=== PATIENT | female | born 1945 | race Caucasian/White ===

== ENCOUNTER 2022-03-27 12:01 | Outpatient (REF) | payer MEDICARE, OTHER, SELFPAY | END 2022-03-27 12:02 | disposition home or self-care (01) | LOC: HO.MDS 12:01 | PROVIDERS: PCP Internal Medicine Rheumatology; Visit Provider Internal Medicine Cardiovascular Disease | DX: M06.00 Rheumatoid arthritis without rheumatoid factor, unspecified site (principal) | CPT/HCPCS: J0129 ==

== ENCOUNTER 2022-03-27 13:44 | Outpatient (REF) | payer MEDICARE, OTHER, SELFPAY ==
[2022-03-27 14:54] LABS: COVID-19 Test Negative (Negative)
== END 2022-03-27 13:45 | disposition home or self-care (01) ==
LOC: HO.LAB 13:44
PROVIDERS: Visit Provider Internal Medicine
DX: M06.00 Rheumatoid arthritis without rheumatoid factor, unspecified site (principal); Z20.822 Contact with and (suspected) exposure to COVID-19
CPT/HCPCS: 87635; 96365; C9803; J0129

== ENCOUNTER 2022-04-05 14:52 | Inpatient (IN) | payer MEDICARE, OTHER, SELFPAY ==
--- NOTE | ~2022-04-05 | XR_ITS ---
EXAMINATION: XR PELVIS CLINICAL INFORMATION: Fall. COMPARISON: None TECHNIQUE: AP view of the pelvis. FINDINGS: No acute fractures or malalignment. Mild degenerative osteoarthritis of both hips. Residual IV contrast in the collecting systems and bladder. No unexpected radiopaque foreign bodies. XR/XR pelvis 1-2V IMPRESSION: No acute fractures or malalignment.
--- NOTE | ~2022-04-05 | CT_ITS ---
EXAMINATION: CT HEAD WITHOUT CONTRAST CLINICAL INFORMATION: Headache COMPARISON: None TECHNIQUE: Contiguous axial imaging was performed from the skull base to vertex without intravenous administration of contrast. This CT examination was performed using dose optimization techniques as appropriate, variously including the following: *Automated exposure control *Adjustment of mA and/or kV according to patient size (this includes techniques or standardized protocols for targeted exams where dose is matched to indication/reason for exam; i.e. extremities or head) *Use of iterative reconstruction technique DLP: 605 mGy-cm FINDINGS: There is no evidence of acute intracranial hemorrhage or territorial infarction. No abnormal mass effect or midline shift is seen. Bass to white matter differentiation is well preserved. No extra-axial fluid collections are identified. There is mild global volume loss with proportionate dilatation of the ventricles and cortical sulci. No definite significant abnormal parenchymal attenuation is noted. Patient is status post bilateral lens extraction. The osseous structures and soft tissues are normal. The mastoid air cells and visualized portions of the paranasal sinuses are well aerated. CT/CT head/brain wo con IMPRESSION: No acute intracranial pathology.
--- NOTE | ~2022-04-05 | US_ITS ---
EXAMINATION: US VENOUS ULTRASOUND WITH DOPPLER LOWER EXTREMITY, BILATERAL CLINICAL INFORMATION: Positive d-dimer. COMPARISON: None. TECHNIQUE: Ultrasound of the deep veins is performed from the hip to the calf with compression sonography and color and pulse Doppler assessment. Spectral analysis with color-flow imaging is performed. FINDINGS: RIGHT: There is normal venous compression and respiratory variation and augmented flow. The visualized common femoral vein, superficial femoral vein, profunda femoral vein, popliteal vein, and the trifurcation region shows no evidence of deep venous thrombosis. There is no significant popliteal fossa cyst. LEFT: There is normal venous compression and respiratory variation and augmented flow. The visualized common femoral vein, superficial femoral vein, profunda femoral vein, popliteal vein, and the trifurcation region shows no evidence of deep venous thrombosis. There is no significant popliteal fossa cyst. If the patient's symptoms persist, followup ultrasound in 5 days 7 days might be of value to exclude proximal propagation from a non-visualized calf vein. US/US venous duplex LE BI IMPRESSION: No DVT demonstrated in the bilateral lower extremities.
--- NOTE | ~2022-04-05 | CT_ITS ---
EXAMINATION: CT ANGIOGRAM OF THE CHEST WITH AND WITHOUT CONTRAST (CT PULMONARY ANGIOGRAM FOR PE) CLINICAL INFORMATION: Reason for Exam syncope,sob with minimal exertion, recent travel hx COMPARISON: None TECHNIQUE: Prior to contrast administration, noncontrast localization images were obtained. Subsequently, multidetector volumetric imaging was performed from the thoracic inlet to below the diaphragms following the administration of 80 mL Omnipaque 350 intravenous contrast. No contrast reaction reported Sagittal, coronal, and MIP oblique sagittal reformatted images were obtained on the CT workstation, uploaded to PACS, and reviewed. This CT examination was performed using dose optimization techniques as appropriate, variously including the following: *Automated exposure control *Adjustment of mA and/or kV according to patient size (this includes techniques or standardized protocols for targeted exams where dose is matched to indication/reason for exam; i.e. extremities or head) *Use of iterative reconstruction technique Total exam dose-length product 229 mGy-cm FINDINGS: QUALITY OF STUDY/CONTRAST BOLUS: Satisfactory. PULMONARY ARTERIES: There are small thrombus in the right lower lobe posterior basal segment branch consistent PE. This is best visualized on axial image 32/5. No additional filling defects seen. THORACIC AORTA: There is no evidence of aneurysm or dissection suspected. LUNG: The lungs are well-expanded with bibasilar atelectasis. No consolidation, mass or nodules seen. PLEURA: No pleural effusion or pneumothorax. MEDIASTINUM: The heart size and the great vessels are normal caliber. The right ventricle isn't slightly larger compared to the left ventricle but no evidence of septal bowing or right heart strain. No abnormal size based lymph nodes or mass seen. No pericardial effusion. CHEST WALL/AXILLA: No axillary or internal mammary lymphadenopathy. OSSEOUS STRUCTURES: No acute or suspicious osseous abnormality. UPPER ABDOMEN: Unremarkable. No reflux of contrast into the hepatic veins to suggest elevated right heart pressures. CT/CT angio chest PE protocol IMPRESSION: Right lower lobe thrombus/PE. No additional thrombi seen. Dependent bibasilar atelectasis. Results were called to Dr. Sabillon by phone with ER at 4:58 PM VTE: positive
--- NOTE | ~2022-04-05 | NM_ITS ---
EXAMINATION: NM LUNG IMAGE PERFUSION CLINICAL INFORMATION: SOB, intermittent pulmonary emboli is noted. COMPARISON: None TECHNIQUE: Following intravenous administration of 4.0 mCi of 90 9M technetium MAA, imaging of both lungs were obtained in multiple projections. Ventilation study was not performed. FINDINGS: There is normal perfusion seen to all segments of both lungs without focal segmental or subsegmental defect. Ventilation study was not performed. NM/NM pul perfusion IMPRESSION: Normal perfusion exam. No suspicion for PE.
[2022-04-05 15:06] VITALS: BP 101/55; PULSE 73; RESP 18; TEMP 36.8; O2SAT 98; BMI 22.7
--- NOTE | 2022-04-05 15:10 | ECG_ITS ---
Test Reason : DYSPNEA Blood Pressure : / mmHG Vent. Rate : 070 BPM Atrial Rate : 070 BPM P-R Int : 146 ms QRS Dur : 070 ms QT Int : 408 ms P-R-T Axes : 066 032 063 degrees QTc Int : 440 ms Normal sinus rhythm Cannot rule out Anterior infarct , age undetermined Abnormal ECG No previous ECGs available Referred By: Farhad Webb Electronically Signed By:Deon Tsang
[2022-04-05 15:24] LABS: Glucose, Whole Blood 97 mg/dL (60-115)
--- NOTE | 2022-04-05 15:43 | ED.NEUROSD ---
HPI - Neuro Symptoms/Deficit General Chief Complaint: Neuro Symptoms/Deficit Stated Complaint: DIFFICULTY BREATHING, CHEST PAIN Time Seen by Provider: 04/05/22 15:09 Source: patient and family (Spouse) Mode of arrival: ambulatory Limitations: no limitations History of Present Illness HPI Narrative: 76-year-old female came in with her for evaluation shortness of breath and syncopal episode today. Patient with history of inflammatory arthritis receiving methotrexate and other immunosuppressant infusion, patient recently had IV infusion of Orencia. For 2 days patient been having shortness of breath at rest, worsening with any minimal exertion, patient witnessed to pass out twice by her , patient had 1 time nonbloody watery diarrhea. Patient was seen and evaluated at [facility] for same symptoms had a CT chest without IV contrast showed no parenchymal abnormalities. A concern of PE since patient recently traveled from [place]. Decline chest pain, decline bleeding, no fever, no chills. Related Data Allergies Allergy/AdvReac Type Severity Reaction Status Date / Time No Known Allergies Allergy Verified 04/05/22 15:06 Review of Systems Review of Systems: All other systems are reviewed and are negative Constitutional: Reports as per HPI and Reports no additional constitutional complaints Eyes: Reports as per HPI and Reports no additional eye complaints Reports system reviewed and no additional complaints, except as documented Cardiovascular: Reports as per HPI and Reports no additional cardiovascular complaints Respiratory: Reports as per HPI and Reports no additional respiratory complaints Gastrointestinal: Reports as per HPI and Reports no additional gastrointestinal complaints Genitourinary: Reports no additional female genitourinary complaints Musculoskeletal: Reports no additional musculoskeletal complaints Skin/Breast: Reports system reviewed and no additional complaints, except as docu Psychiatric: Reports no additional psychiatric complaints Endocrine: Reports no additional endocrine complaints Hematologic/Lymphatic: Reports no additional hematologic/lymphatic complaints Allergic/Immunologic: Reports no additional allergic/immunologic complaints Reports system reviewed and no additional complaints, except as documented and Reports Abnormal speech present [facility] Past Medical History Attestation statement: The following information was validated with the patient. Social History Social History Advance Directives: No Advance Directives Information Provided: No Physical Exam Vital Signs: Vital Signs: Last Vital Signs Temp 98.3 F 04/05/22 15:06 Pulse 73 04/05/22 15:06 Resp 18 04/05/22 15:06 BP 101/55 L 04/05/22 15:06 Pulse Ox 98 04/05/22 15:06 BMI result Body Mass Index 22.7 Vital signs have been reviewed as appeared to be correct. Blood pressure normal. Heart rate normal. Respiration rate normal. Temperature normal. Oxygen saturation normal. Appearance: Alert. Oriented X3. No acute distress. Head: Normal external exam. Normocephalic. Atraumatic. No Newton signs noted. No raccoon eyes noted Eyes: PERRLA. EOMI. Conjunctiva and sclera normal. Eyelids normal. ENT: TM's Normal. Pharynx normal. Uvula midline. Moist mucous membranes. No trismus noted. No drooling noted. No muffled voice noted. Neck: Normal inspection. Neck supple. FROM. No adenopathy. Thyroid Normal. No meningeal signs. No neck mass noted. CVS: Normal heart rate and rhythm. Heart sound normal. No murmurs noted. Pulses normal throughout. Respiratory: No respiratory distress. Painless inspiration. Breath sounds normal. No wheezes/rales/rhonchi noted. Chest nontender. No accessory muscle usage noted or decreased air movement noted. Abdomen: Soft and nontender. Bowel sounds normal in all 4 quadrants. No distention noted. No organomegaly noted. No visible injury noted. Back: No CVA tenderness. Full range of motion noted. Skin: Skin warm and dry. Normal skin color. Normal skin turgor. No rashes/lesions/lacerations noted. Extremities: No lower extremity edema. Extremities exhibit normal range of motion. Extremities nontender. Neuro: Oriented X 3. Cranial nerve exam: II-XII are grossly intact No motor deficit. No sensory deficit. Reflexes normal. Course Course Course Narrative: Assessment and plan. 76-year-old female came in for evaluation of shortness of breath after had orenica IV infusion last week. Labs/CT of the abdomen and pelvis still pending. Case signed out to Dr. Sabillon for re-evaluation and dispo accordingly MDM - Neuro Symptoms/Deficit Lab Data Labs: Lab Results 04/05/22 Range/Units 15:14 POC Glucose 97 (60-115) mg/dL Discharge Plan Discharge Clinical Impression: Dyspnea Patient Disposition: Still a Patient
[2022-04-05 15:58] LABS: MANUAL DIFF FLAG NO
[2022-04-05 15:59] LABS: Basophils Percent Auto 0.5 % (0-2); Eosinophils Absolute Auto 0.2 X10*3/uL (0.0-0.4); Eosinophils Percent Auto 3.1 % (0-4); Hematocrit 41.2 % (37.0-47.0); Hemoglobin 13.6 g/dl (12.0-16.0); Imm Gran Abs Auto 0.02 X10*3/uL (0.00-0.03); Imm Gran Pct Auto 0.3 % (0.0-0.4); Lymphocytes Absolute Auto 2.1 X10*3/uL (1.2-4.9); Lymphocytes Percent Auto 32.2 % (20-40); Mean Corpuscular Hemoglobin 29.6 pg (27.0-33.0); Mean Corpuscular Volume 89.8 fL (80.0-98.0); Monocytes Absolute Auto 1.1 X10*3/uL (0.1-1.2); Monocytes Percent Auto 16.3 % (2-11); Neutrophils Absolute Auto 3.1 x10*3/uL (2.0-8.3); Neutrophils Percent Auto 47.6 % (45-73); Platelet Count 313 X10*3/uL (160-400); Red Blood Count 4.59 X10*6/uL (4.20-5.50); Red Cell Distribution Width 14.3 % (11.0-16.0); White Blood Count 6.4 X10*3/uL (4.8-10.8)
[2022-04-05 16:07] LABS: D Dimer High Sensitivity 320 NG/ML
[2022-04-05 16:15] LABS: Alanine Aminotransferase 21 U/L (0-31); Albumin Level 3.9 g/dL (3.5-5.0); Alkaline Phosphatase 104 U/L (39-117); Anion Gap 13 (12-20); Aspartate Amino Transferase 19 U/L (5-31); Bilirubin Direct 0.2 mg/dL (0.0-0.5); Bilirubin Total 0.7 mg/dL (0.0-1.0); Blood Urea Nitrogen 15 mg/dL (9-16); Calcium 9.4 mg/dL (8.4-10.2); Carbon Dioxide 23 mmol/L (22-29); Chloride 108 mmol/L (96-108); Estimated Glomerular Filt Rate > 60; Glucose Random 77 mg/dL (60-115); Lipase 54 U/L (8-78); Potassium 3.6 mmol/L (3.3-5.1); Sodium 140 mmol/L (135-145); Total Protein 6.7 g/dL (6.5-8.0)
[2022-04-05 16:21] LABS: B Type Natriuretic Peptide < 10 pg/mL (<100)
[2022-04-05 16:22] LABS: Troponin-I High Sensitivity < 3.5 ng/L (<3.5-17.0)
[2022-04-05 16:37] LABS: Influenza A PCR NEGATIVE (Negative); Influenza B PCR NEGATIVE (Negative); Resp Syncy Virus RNA Qual PCR NEGATIVE (Negative); SARS COV2 PCR INHOUSE NEGATIVE (Negative)
[2022-04-05] MEDS: iohexoL 350 MG/ML 100 ML INFUS..BTL IV (16:41)
--- NOTE | 2022-04-05 17:10 | ED_ITS ---
HPI - Neuro Symptoms/Deficit General Chief Complaint: Neuro Symptoms/Deficit Stated Complaint: DIFFICULTY BREATHING, CHEST PAIN Time Seen by Provider: 04/05/22 15:09 Source: patient and family (Spouse) Mode of arrival: ambulatory Limitations: no limitations Related Data Allergies Allergy/AdvReac Type Severity Reaction Status Date / Time No Known Allergies Allergy Verified 04/05/22 15:06 [facility] Social History Social History Advance Directives: No Advance Directives Information Provided: No Physical Exam Vital Signs: Vital Signs: Last Vital Signs Temp 98.3 F 04/05/22 15:06 Pulse 73 04/05/22 15:06 Resp 18 04/05/22 15:06 BP 101/55 L 04/05/22 15:06 Pulse Ox 98 04/05/22 15:06 BMI result Body Mass Index 22.7 MDM - Neuro Symptoms/Deficit MDM Narrative Medical decision making narrative: Patient's CTA of the chest was positive for pulmonary emboli. Will start patient on Lovenox as patient had a normal creatinine. Patient's case discussed with the hospitalist team for admission. Currently in stable condition Lab Data Result diagrams: 04/05/22 15:50 04/05/22 15:50 Labs: Lab Results 04/05/22 04/05/22 04/05/22 Range/Units 15:14 15:50 15:50 WBC 6.4 (4.8-10.8) X10*3/uL RBC 4.59 (4.20-5.50) X10*6/uL Hgb 13.6 (12.0-16.0) g/dl Hct 41.2 (37.0-47.0) % MCV 89.8 (80.0-98.0) fL MCH 29.6 (27.0-33.0) pg MCHC 33.0 (31.0-35.0) g/dl RDW 14.3 (11.0-16.0) % Plt Count 313 (160-400) X10*3/uL MPV 10.0 (9.4-12.3) fL Immature Gran % (Auto) 0.3 (0.0-0.4) % Neut % (Auto) 47.6 (45-73) % Lymph % (Auto) 32.2 (20-40) % [place] % (Auto) 16.3 H (2-11) % Eos % (Auto) 3.1 (0-4) % Baso % (Auto) 0.5 (0-2) % Lymph # (Auto) 2.1 (1.2-4.9) X10*3/uL [place] # (Auto) 1.1 (0.1-1.2) X10*3/uL Eos # (Auto) 0.2 (0.0-0.4) X10*3/uL Baso # (Auto) 0.0 (0.0-0.2) X10*3/uL Abs Immat Gran (auto) 0.02 (0.00-0.03) X10*3/uL Absolute Neuts (auto) 3.1 (2.0-8.3) x10*3/uL Absolute Nucleated RBC 0.000 (0.0-0.012) X10*3/uL Nucleated RBC % (auto) 0.0 (0.0-0.2) /100WBC D-Dimer High Sensitivty NG/ML Sodium 140 (135-145) mmol/L Potassium 3.6 (3.3-5.1) mmol/L Chloride 108 (96-108) mmol/L Carbon Dioxide 23 (22-29) mmol/L Anion Gap 13 (12-20) BUN 15 (9-16) mg/dL Creatinine 0.76 (0.5-1.4) mg/dL Estim Creat Clear Calc 58.0 Estimated GFR > 60 POC Glucose 97 (60-115) mg/dL Random Glucose 77 (60-115) mg/dL Calcium 9.4 (8.4-10.2) mg/dL Total Bilirubin 0.7 (0.0-1.0) mg/dL Direct Bilirubin 0.2 (0.0-0.5) mg/dL AST 19 (5-31) U/L ALT 21 (0-31) U/L Alkaline Phosphatase 104 (39-117) U/L Troponin I High Sens (<3.5-17.0) ng/L B-Natriuretic Peptide (<100) pg/mL Total Protein 6.7 (6.5-8.0) g/dL Albumin 3.9 (3.5-5.0) g/dL Lipase 54 (8-78) U/L 04/05/22 04/05/2222 Range/Units 15:50 15:50 15:50 WBC (4.8-10.8) X10*3/uL RBC (4.20-5.50) X10*6/uL Hgb (12.0-16.0) g/dl Hct (37.0-47.0) % MCV (80.0-98.0) fL MCH (27.0-33.0) pg MCHC (31.0-35.0) g/dl RDW (11.0-16.0) % Plt Count (160-400) X10*3/uL MPV (9.4-12.3) fL Immature Gran % (Auto) (0.0-0.4) % Neut % (Auto) (45-73) % Lymph % (Auto) (20-40) % [place] % (Auto) (2-11) % Eos % (Auto) (0-4) % Baso % (Auto) (0-2) % Lymph # (Auto) (1.2-4.9) X10*3/uL [place] # (Auto) (0.1-1.2) X10*3/uL Eos # (Auto) (0.0-0.4) X10*3/uL Baso # (Auto) (0.0-0.2) X10*3/uL Abs Immat Gran (auto) (0.00-0.03) X10*3/uL Absolute Neuts (auto) (2.0-8.3) x10*3/uL Absolute Nucleated RBC (0.0-0.012) X10*3/uL Nucleated RBC % (auto) (0.0-0.2) /100WBC D-Dimer High Sensitivty 320 NG/ML Sodium (135-145) mmol/L Potassium (3.3-5.1) mmol/L Chloride (96-108) mmol/L Carbon Dioxide (22-29) mmol/L Anion Gap (12-20) BUN (9-16) mg/dL Creatinine (0.5-1.4) mg/dL Estim Creat Clear Calc Estimated GFR POC Glucose (60-115) mg/dL Random Glucose (60-115) mg/dL Calcium (8.4-10.2) mg/dL Total Bilirubin (0.0-1.0) mg/dL Direct Bilirubin (0.0-0.5) mg/dL AST (5-31) U/L ALT (0-31) U/L Alkaline Phosphatase (39-117) U/L Troponin I High Sens < 3.5 (<3.5-17.0) ng/L B-Natriuretic Peptide < 10 (<100) pg/mL Total Protein (6.5-8.0) g/dL Albumin (3.5-5.0) g/dL Lipase (8-78) U/L Discharge Plan Discharge Clinical Impression: Dyspnea, Pulmonary emboli Patient Disposition: Admitted As Inpatient
[2022-04-05 17:39] VITALS: BP 116/65; PULSE 61; RESP 18; O2SAT 100
[2022-04-05] MEDS: Enoxaparin Sodium 60 MG/0.6 ML SYRINGE SUBCUT (17:40)
--- NOTE | 2022-04-05 17:51 | PHA.MEDREC ---
Pharmacy Consult ? Medication Reconciliation Pharmacy has completed the medication reconciliation. Pt gets Aimovig injection for migraines, last dose on 03/13/22. Pt and family member unsure of exact dose, but noted that next dose will be due 04/13/22. Not showing in claim history.
[2022-04-05 18:06] LABS: C Reactive Protein 0.72 mg/dL (< or = 0.50)
[2022-04-05 18:40] LABS: Erythrocyte Sedimentation Rate 8 MM/HR (0-20)
--- NOTE | 2022-04-05 20:00 | P.HPHOSP_ITS ---
History of Present Illness Date of Service: 04/05/22 Chief Complaint: SOB 76-year-old female with a past medical history of inflammatory arthritis, legally blind, depression presented to the hospital today with a chief complaint of shortness of breath. Patient reports that for the past 1 week she has been having shortness of breath/ dyspnea on exertion; reports dry cough. Denies any fevers. Symptoms have been gradually worsening. Four days ago she went to [facility] where she had D-dimer of 0.5; CT chest was done which showed no acute findings; subsequently patient was discharged home; today patient felt lightheaded and dizzy and fell on the floor, landed on the hip; denies any head strike or loss of consciousness. denies any trouble with ambulation after the fall. Subsequently came to the ER for further evaluation. Denies any GI symptoms. Patient also reports she has right lower back chest wall pain. Also spoke to the patient's family at bedside Review of all other systems is negative except mentioned above ER course: Per ER team patient's EKG was nonischemic; labs essentially benign; CT chest with PE protocol showed right lower lobe pulmonary embolism. Patient was given Lovenox. Admitted to the hospital for further management. PMFSH Pertinent family history: sister: blood clots Mother: Diabetes Social History Advance Directives: No Advance Directives Information Provided: No Meds Allergies Allergy/AdvReac Type Severity Reaction Status Date / Time No Known Allergies Allergy Verified 04/05/22 15:06 Active Medications: Current Medications Acetaminophen (Acetaminophen 325 Mg Tablet) 650 mg PO Q6H PRN PRN Reason: Pain, Mild (Pain Scale 1-3) Albuterol/Ipratropium (Albuterol/Iprat 2.5/0.5mg 3 Ml Ampul.Neb) 3 ml INHALE RQ4H PRN PRN Reason: Shortness of Breath/Wheezing Duloxetine HCl (Duloxetine Hcl 60 Mg Capsule.) 60 mg PO BEDTIME ZENON Ezetimibe (Ezetimibe 10 Mg Tablet) 10 mg PO BEDTIME ZENON Folic Acid (Folic Acid 1 Mg Tablet) 1 mg PO DAILY ZENON Dextrose/Sodium Chloride (D5ns) 1,000 mls @ 75 mls/hr IVCONT .[id number] ZENON Melatonin (Melatonin 3 Mg Tablet) 6 mg PO BEDTIME PRN PRN Reason: Insomnia Methotrexate (Methotrexate Sodium 2.5 Mg Tablet) 12.5 mg PO WE ZENON Non-Formulary Medication (Oxycodone-Acetaminophen) 1 tab PO Q6H PRN PRN Reason: pain Omeprazole (Omeprazole 20 Mg Capsule.Dr) 20 mg PO DAILY PRN PRN Reason: Acid Reflux Pharmacy Consult (Consult Rx Perform Med Rec) 1 each MISCELLANE ONCE PRN PRN Reason: Consult order Senna (Sennosides 8.6 Mg Tablet) 17.2 mg PO BEDTIME PRN PRN Reason: Constipation Sodium Chloride (0.9 % Sodium Chloride Flush 3 Ml Syringe) 3 ml IVFLUSH QSHIFT ZENON Temazepam (Temazepam 15 Mg Capsule) 15 mg PO BEDTIME PRN PRN Reason: Sleep Home Medications Medication Instructions Recorded Confirmed Last Taken Type duloxetine 60 mg capsule,delayed 1 cap PO BEDTIME 04/05/22 04/05/22 04/04/22 History release ezetimibe 10 mg tablet 1 tab PO BEDTIME 04/05/22 04/05/22 04/04/22 History folic acid 1 mg tablet 1 tab PO DAILY 04/05/22 04/05/22 04/04/22 History methotrexate sodium 2.5 mg tablet 5 tab PO WE 04/05/22 04/05/22 04/01/22 History omeprazole 20 mg capsule,delayed 1 cap PO DAILY PRN 04/05/22 04/05/22 Unknown History release oxycodone-acetaminophen 5 mg-325 1 tab PO Q6H PRN 04/05/22 04/05/22 Unknown History mg tablet temazepam 15 mg capsule 1 cap PO BEDTIME PRN 04/05/22 04/05/22 Unknown History Physical Exam Vital Signs and Narrative: Vital Signs: Last Vital Signs Temp 98.3 F 04/05/22 15:06 Pulse 61 04/05/22 17:39 Resp 18 04/05/22 17:39 BP 116/65 04/05/22 17:39 Pulse Ox 100 04/05/22 17:39 BMI result Body Mass Index 22.7 Gen: Appears be in no acute distress HEENT: NCAT, Moist mucosa. Pulmonary: Vesicular breath sounds, fair air entry CVS: Normal S1-S2 Abdomen: BS+, Soft, Nontender; right posterolateral chest wall pain-reproducible Extremities: Warm well perfused Neuro: Alert and awake.Grossly nonfocal Results Labs CBC and Chem 7: 04/05/22 15:50 04/05/22 15:50 Labs: Laboratory Results - last 24 hr 04/05/22 04/05/22 04/05/22 15:14 15:50 15:50 MCV 89.8 MCH 29.6 MCHC 33.0 RDW 14.3 Plt Count 313 MPV 10.0 Immature Gran % (Auto) 0.3 Neut % (Auto) 47.6 Lymph % (Auto) 32.2 [place] % (Auto) 16.3 H Eos % (Auto) 3.1 Baso % (Auto) 0.5 Lymph # (Auto) 2.1 [place] # (Auto) 1.1 Eos # (Auto) 0.2 Baso # (Auto) 0.0 Abs Immat Gran (auto) 0.02 Absolute Neuts (auto) 3.1 Absolute Nucleated RBC 0.000 Nucleated RBC % (auto) 0.0 ESR D-Dimer High Sensitivty Anion Gap 13 Estim Creat Clear Calc 58.0 Estimated GFR > 60 POC Glucose 97 Random Glucose 77 Calcium 9.4 Total Bilirubin 0.7 Direct Bilirubin 0.2 AST 19 ALT 21 Alkaline Phosphatase 104 Troponin I High Sens C-Reactive Protein 0.72 H B-Natriuretic Peptide Total Protein 6.7 Albumin 3.9 Lipase 54 Influenza Type A (PCR) Influenza Type B (PCR) RSV RNA Qual (PCR) SARS-CoV-2 RNA (RT-PCR) 04/05/22 04/05/22 04/05/22 15:50 15:50 15:50 MCV MCH MCHC RDW Plt Count MPV Immature Gran % (Auto) Neut % (Auto) Lymph % (Auto) [place] % (Auto) Eos % (Auto) Baso % (Auto) Lymph # (Auto) [place] # (Auto) Eos # (Auto) Baso # (Auto) Abs Immat Gran (auto) Absolute Neuts (auto) Absolute Nucleated RBC Nucleated RBC % (auto) ESR D-Dimer High Sensitivty 320 Anion Gap Estim Creat Clear Calc Estimated GFR POC Glucose Random Glucose Calcium Total Bilirubin Direct Bilirubin AST ALT Alkaline Phosphatase Troponin I High Sens < 3.5 C-Reactive Protein B-Natriuretic Peptide < 10 Total Protein Albumin Lipase Influenza Type A (PCR) Influenza Type B (PCR) RSV RNA Qual (PCR) SARS-CoV-2 RNA (RT-PCR) 04/05/22 04/05/22 15:50 15:50 MCV MCH MCHC RDW Plt Count MPV Immature Gran % (Auto) Neut % (Auto) Lymph % (Auto) [place] % (Auto) Eos % (Auto) Baso % (Auto) Lymph # (Auto) [place] # (Auto) Eos # (Auto) Baso # (Auto) Abs Immat Gran (auto) Absolute Neuts (auto) Absolute Nucleated RBC Nucleated RBC % (auto) ESR 8 D-Dimer High Sensitivty Anion Gap Estim Creat Clear Calc Estimated GFR POC Glucose Random Glucose Calcium Total Bilirubin Direct Bilirubin AST ALT Alkaline Phosphatase Troponin I High Sens C-Reactive Protein B-Natriuretic Peptide Total Protein Albumin Lipase Influenza Type A (PCR) NEGATIVE Influenza Type B (PCR) NEGATIVE RSV RNA Qual (PCR) NEGATIVE SARS-CoV-2 RNA (RT-PCR) NEGATIVE Imaging Radiologist's Impressions: Impressions Chest CTA 04/05/22 16:25 IMPRESSION: Right lower lobe thrombus/PE. No additional thrombi seen. Dependent bibasilar atelectasis. Results were called to Dr. Sabillon by phone with ER at 4:58 PM VTE: positive Assessment and Plan (1) Pulmonary emboli: Status: Acute (2) Dyspnea: Status: Acute Plan 76-year-old female with a past medical history of inflammatory arthritis, legally blind, depression presented to the hospital today with a chief complaint of shortness of breath/ Near syncope/ fall. Noted to have pulmonary embolism. Admitted for further management Near syncope/fall/ALMAZAN: Will obtain orthostatic vitals EKG nonischemic Troponin negative Gentle IV fluids will obtain pelvis x-ray echocardiogram Pulmonary embolism: Patient is started on Lovenox Hematology-Oncology consult will also obtain venous duplex History of inflammatory arthritis: Patient on anti-inflammatory agents. Currently taking methotrexate. Patient follows with [facility] as outpatient. continue home Percocet History of depression: Continue home duloxetine DVT prophylaxis: Patient on Lovenox Code status: Full code Quality Stroke Does the patient have a stroke diagnosis?: No VTE Prior VTE?: No VTE Risk Level:: Medical - moderate - high VTE Device Contraindication: Treatment Not Indicated VTE Drug Contraindication: N/A - Med Ordered
[2022-04-05 20:11] VITALS: BMI 26.0
[2022-04-05] MEDS: Ezetimibe 10 MG TABLET PO (21:25)
[2022-04-05] MEDS: DULoxetine HCl 60 MG CAPSULE.DR PO (21:25)
[2022-04-05] MEDS: Dextrose 5 % and 0.9 % NaCl 1,000 ML 75 ML IVCONT (21:40)
[2022-04-05 21:53] LABS: Prothrombin Time 11.6 SEC (9.9-13.0)
[2022-04-05 23:32] LABS: Appearance Urine CLEAR; Color Urine YELLOW; Glucose Urine UA NEG (NEG); Leukocyte Esterase Urine NEG (NEG); Nitrite Urine NEG (NEG); Specific Gravity - Urine <= 1.005 (1.005-1.025); Urine Blood NEG (NEG); Urine Ketones 5 MG/DL (NEG); Urine Protein NEG (NEG-TRACE)
[2022-04-05] MEDS: Temazepam 15 MG CAPSULE PO (23:41)
[2022-04-06] VITALS (7 sets, daily range): BP systolic 97–119; BP diastolic 33–62; PULSE 60–86; RESP 12–19; TEMP 36.3–37.1; O2SAT 95–98
--- NOTE | 2022-04-06 | ECG_ITS ---
Test Reason : CHEST PAIN Blood Pressure : / mmHG Vent. Rate : 063 BPM Atrial Rate : 063 BPM P-R Int : 128 ms QRS Dur : 074 ms QT Int : 422 ms P-R-T Axes : 039 010 046 degrees QTc Int : 431 ms Normal sinus rhythm Normal ECG When compared with ECG of 05-APR-2022 15:20, No significant change was found Referred By: Dougie [facility] Electronically Signed By:JUANCARLOS WHITE MD
[2022-04-06] MEDS: Enoxaparin Sodium 80 MG/0.8 ML SYRINGE 70 MG SUBCUT ×2 (06:43→17:13)
[2022-04-06 07:10] LABS: MANUAL DIFF FLAG NO
[2022-04-06 07:11] LABS: Basophils Percent Auto 0.4 % (0-2); Eosinophils Absolute Auto 0.2 X10*3/uL (0.0-0.4); Eosinophils Percent Auto 4.9 % (0-4); Hematocrit 38.2 % (37.0-47.0); Hemoglobin 12.1 g/dl (12.0-16.0); Imm Gran Abs Auto 0.01 X10*3/uL (0.00-0.03); Imm Gran Pct Auto 0.2 % (0.0-0.4); Lymphocytes Absolute Auto 1.8 X10*3/uL (1.2-4.9); Lymphocytes Percent Auto 37.7 % (20-40); Mean Corpuscular HGB Conc 31.7 g/dl (31.0-35.0); Mean Corpuscular Hemoglobin 29.3 pg (27.0-33.0); Mean Corpuscular Volume 92.5 fL (80.0-98.0); Mean Platelet Volume 9.7 fL (9.4-12.3); Monocytes Absolute Auto 0.9 X10*3/uL (0.1-1.2); Neutrophils Absolute Auto 1.7 x10*3/uL (2.0-8.3); Neutrophils Percent Auto 36.8 % (45-73); Platelet Count 252 X10*3/uL (160-400); Red Blood Count 4.13 X10*6/uL (4.20-5.50); Red Cell Distribution Width 14.6 % (11.0-16.0); White Blood Count 4.7 X10*3/uL (4.8-10.8)
[2022-04-06 07:38] LABS: Troponin-I High Sensitivity < 3.5 ng/L (<3.5-17.0)
[2022-04-06 07:40] LABS: Anion Gap 10 (12-20); Blood Urea Nitrogen 13 mg/dL (9-16); Carbon Dioxide 23 mmol/L (22-29); Chloride 110 mmol/L (96-108); Creatinine Clr Calc Pharmacy 70.9; Estimated Glomerular Filt Rate > 60; Glucose Random 98 mg/dL (60-115); Potassium 3.9 mmol/L (3.3-5.1); Sodium 139 mmol/L (135-145)
[2022-04-06 07:42] LABS: Glucose, Whole Blood 91 mg/dL (60-115)
[2022-04-06 07:48] LABS: Calcium 8.8 mg/dL (8.4-10.2)
[2022-04-06] MEDS: Folic Acid 1 MG TABLET PO (09:10)
[2022-04-06] MEDS: oxyCODONE HCl Immed Release 5 MG TABLET PO (10:10)
[2022-04-06] MEDS: Sennosides 8.6 MG TABLET 17.2 MG PO (10:14)
--- NOTE | 2022-04-06 11:48 | HO.PM.IMPN ---
Subjective Subjective Date of Service: 04/06/22 Interval History: Seen in f/u for acute Pulmonary embolism complicated by syncope Interval history: no more chest pain or sob, BP is marginally low Review of Systems no chest pain, no sob Physical Exam Vital Signs: Vital Signs: Last Vital Signs Temp 98.7 F 04/06/22 00:12 Pulse 72 04/06/22 09:28 Resp 15 04/06/22 09:28 BP 99/39 L 04/06/22 09:28 Pulse Ox 98 04/06/22 09:28 BMI result Body Mass Index 26.0 Objective Data Active Medications Acetaminophen (Acetaminophen 325 Mg Tablet) 650 mg PO Q6H PRN PRN Reason: Pain, Mild (Pain Scale 1-3) Albuterol/Ipratropium (Albuterol/Iprat 2.5/0.5mg 3 Ml Ampul.Neb) 3 ml INHALE RQ4H PRN PRN Reason: Shortness of Breath/Wheezing Duloxetine HCl (Duloxetine Hcl 60 Mg Capsule.) 60 mg PO BEDTIME [facility] Last Admin: 04/05/22 21:25 Dose: 60 mg Documented by: GAYATHRI Ezetimibe (Ezetimibe 10 Mg Tablet) 10 mg PO BEDTIME [facility] Last Admin: 04/05/22 21:25 Dose: 10 mg Documented by: GAYATHRI Enoxaparin Sodium (Enoxaparin Sodium 80 Mg/0.8 Ml Syringe) 70 mg SUBCUT Q12H [facility] Last Admin: 04/06/22 06:43 Dose: 70 mg Documented by: GILBERT Folic Acid (Folic Acid 1 Mg Tablet) 1 mg PO DAILY [facility] Last Admin: 04/06/22 09:10 Dose: 1 mg Documented by: JONATHAN Dextrose/Sodium Chloride (D5ns) 1,000 mls @ 75 mls/hr IVCONT .[id number] [facility] Last Admin: 04/05/22 21:40 Dose: 75 mls/hr Documented by: GAYATHRI Melatonin (Melatonin 3 Mg Tablet) 6 mg PO BEDTIME PRN PRN Reason: Insomnia Methotrexate (Methotrexate Sodium 2.5 Mg Tablet) 12.5 mg PO We@1000 [facility] Omeprazole (Omeprazole 20 Mg Capsule.) 20 mg PO DAILY PRN PRN Reason: Acid Reflux Oxycodone HCl (Oxycodone Hcl Immed Release 5 Mg Tablet) 5 mg PO Q6H PRN PRN Reason: Pain, Moderate (Pain Scale 4-6 Last Admin: 04/06/22 10:10 Dose: 5 mg Documented by: JONATHAN Pharmacy Consult (Consult Rx Perform Med Rec) 1 each MISCELLANE ONCE PRN PRN Reason: Consult order Senna (Sennosides 8.6 Mg Tablet) 17.2 mg PO BEDTIME PRN PRN Reason: Constipation Last Admin: 04/06/22 10:14 Dose: 17.2 mg Documented by: JONATHAN Sodium Chloride (0.9 % Sodium Chloride Flush 3 Ml Syringe) 3 ml IVFLUSH QSHIFT [facility] Last Admin: 04/06/22 09:12 Dose: Not Given Documented by: JONATHAN Non-Admin Reason: IV Running Temazepam (Temazepam 15 Mg Capsule) 15 mg PO BEDTIME PRN PRN Reason: Sleep Last Admin: 04/05/22 23:41 Dose: 15 mg Documented by: GAYATHRI Labs CBC & Chem 7: 04/06/22 07:02 04/06/22 07:02 Labs: Laboratory Results - last 24 hr 04/05/22 04/05/22 04/05/22 15:14 15:50 15:50 MCV 89.8 MCH 29.6 MCHC 33.0 RDW 14.3 Plt Count 313 MPV 10.0 Immature Gran % (Auto) 0.3 Neut % (Auto) 47.6 Lymph % (Auto) 32.2 [place] % (Auto) 16.3 H Eos % (Auto) 3.1 Baso % (Auto) 0.5 Lymph # (Auto) 2.1 [place] # (Auto) 1.1 Eos # (Auto) 0.2 Baso # (Auto) 0.0 Abs Immat Gran (auto) 0.02 Absolute Neuts (auto) 3.1 Absolute Nucleated RBC 0.000 Nucleated RBC % (auto) 0.0 ESR PT INR APTT D-Dimer High Sensitivty Anion Gap 13 Estim Creat Clear Calc 58.0 Estimated GFR > 60 POC Glucose 97 Random Glucose 77 Calcium 9.4 Total Bilirubin 0.7 Direct Bilirubin 0.2 AST 19 ALT 21 Alkaline Phosphatase 104 Troponin I High Sens C-Reactive Protein 0.72 H B-Natriuretic Peptide Total Protein 6.7 Albumin 3.9 Lipase 54 Urine Color Urine Appearance Urine pH Ur Specific [place] Urine Protein Urine Glucose (UA) Urine Ketones Urine Blood Urine Nitrite Ur Leukocyte Esterase Influenza Type A (PCR) Influenza Type B (PCR) RSV RNA Qual (PCR) SARS-CoV-2 RNA (RT-PCR) 04/05/22 04/05/22 04/05/22 15:50 15:50 15:50 MCV MCH MCHC RDW Plt Count MPV Immature Gran % (Auto) Neut % (Auto) Lymph % (Auto) [place] % (Auto) Eos % (Auto) Baso % (Auto) Lymph # (Auto) [place] # (Auto) Eos # (Auto) Baso # (Auto) Abs Immat Gran (auto) Absolute Neuts (auto) Absolute Nucleated RBC Nucleated RBC % (auto) ESR PT 11.6 INR 1.0 APTT Cancelled D-Dimer High Sensitivty 320 Anion Gap Estim Creat Clear Calc Estimated GFR POC Glucose Random Glucose Calcium Total Bilirubin Direct Bilirubin AST ALT Alkaline Phosphatase Troponin I High Sens < 3.5 C-Reactive Protein B-Natriuretic Peptide < 10 Total Protein Albumin Lipase Urine Color Urine Appearance Urine pH Ur Specific [place] Urine Protein Urine Glucose (UA) Urine Ketones Urine Blood Urine Nitrite Ur Leukocyte Esterase Influenza Type A (PCR) Influenza Type B (PCR) RSV RNA Qual (PCR) SARS-CoV-2 RNA (RT-PCR) 04/05/22 04/05/22 04/05/22 15:50 15:50 23:27 MCV MCH MCHC RDW Plt Count MPV Immature Gran % (Auto) Neut % (Auto) Lymph % (Auto) [place] % (Auto) Eos % (Auto) Baso % (Auto) Lymph # (Auto) [place] # (Auto) Eos # (Auto) Baso # (Auto) Abs Immat Gran (auto) Absolute Neuts (auto) Absolute Nucleated RBC Nucleated RBC % (auto) ESR 8 PT INR APTT D-Dimer High Sensitivty Anion Gap Estim Creat Clear Calc Estimated GFR POC Glucose Random Glucose Calcium Total Bilirubin Direct Bilirubin AST ALT Alkaline Phosphatase Troponin I High Sens C-Reactive Protein B-Natriuretic Peptide Total Protein Albumin Lipase Urine Color YELLOW Urine Appearance CLEAR Urine pH 8.0 Ur Specific [place] <= 1.005 Urine Protein NEG Urine Glucose (UA) NEG Urine Ketones 5 Urine Blood NEG Urine Nitrite NEG Ur Leukocyte Esterase NEG Influenza Type A (PCR) NEGATIVE Influenza Type B (PCR) NEGATIVE RSV RNA Qual (PCR) NEGATIVE SARS-CoV-2 RNA (RT-PCR) NEGATIVE 04/06/22 04/06/22 04/06/22 07:02 07:02 07:02 MCV 92.5 MCH 29.3 MCHC 31.7 RDW 14.6 Plt Count 252 MPV 9.7 Immature Gran % (Auto) 0.2 Neut % (Auto) 36.8 L Lymph % (Auto) 37.7 [place] % (Auto) 20.0 H Eos % (Auto) 4.9 H Baso % (Auto) 0.4 Lymph # (Auto) 1.8 [place] # (Auto) 0.9 Eos # (Auto) 0.2 Baso # (Auto) 0.0 Abs Immat Gran (auto) 0.01 Absolute Neuts (auto) 1.7 L Absolute Nucleated RBC 0.000 Nucleated RBC % (auto) 0.0 ESR PT INR APTT D-Dimer High Sensitivty Anion Gap 10 L Estim Creat Clear Calc 70.9 Estimated GFR > 60 POC Glucose Random Glucose 98 Calcium 8.8 D Total Bilirubin Direct Bilirubin AST ALT Alkaline Phosphatase Troponin I High Sens < 3.5 C-Reactive Protein B-Natriuretic Peptide Total Protein Albumin Lipase Urine Color Urine Appearance Urine pH Ur Specific [place] Urine Protein Urine Glucose (UA) Urine Ketones Urine Blood Urine Nitrite Ur Leukocyte Esterase Influenza Type A (PCR) Influenza Type B (PCR) RSV RNA Qual (PCR) SARS-CoV-2 RNA (RT-PCR) 04/06/22 07:33 MCV MCH MCHC RDW Plt Count MPV Immature Gran % (Auto) Neut % (Auto) Lymph % (Auto) [place] % (Auto) Eos % (Auto) Baso % (Auto) Lymph # (Auto) [place] # (Auto) Eos # (Auto) Baso # (Auto) Abs Immat Gran (auto) Absolute Neuts (auto) Absolute Nucleated RBC Nucleated RBC % (auto) ESR PT INR APTT D-Dimer High Sensitivty Anion Gap Estim Creat Clear Calc Estimated GFR POC Glucose 91 Random Glucose Calcium Total Bilirubin Direct Bilirubin AST ALT Alkaline Phosphatase Troponin I High Sens C-Reactive Protein B-Natriuretic Peptide Total Protein Albumin Lipase Urine Color Urine Appearance Urine pH Ur Specific [place] Urine Protein Urine Glucose (UA) Urine Ketones Urine Blood Urine Nitrite Ur Leukocyte Esterase Influenza Type A (PCR) Influenza Type B (PCR) RSV RNA Qual (PCR) SARS-CoV-2 RNA (RT-PCR) Assessment and Plan (1) Dyspnea: Status: Acute (2) Pulmonary emboli: Status: Acute Plan 76-year-old female with a past medical history of inflammatory arthritis, legally blind, depression presented to the hospital today with a chief complaint of shortness of breath/? Near syncope/ fall.? Noted to have pulmonary embolism.? Admitted for further management Near syncope/fall/ALMAZAN: concern that this is related to PE below EKG nonischemic Troponin negative Gentle IV fluids echocardiogram Pulmonary embolism:Right lower lobe thrombus/PE. Patient is started on Lovenox Hematology-Oncology consult DVT studies are negative. Probable transition to Eliquis or Xarelto in a day or 2 Echo to assess RV Hypotension--not due to sepsis, IVF History of inflammatory arthritis:? Patient on anti-inflammatory agents.? Currently taking methotrexate.? Patient follows with supervisor rework as outpatient. continue home Percocet History of depression: Continue home duloxetine ?DVT prophylaxis:? Patient on Lovenox Code status:? Full code Inpatient: Syncope assocated with pulmonary and need close monitoring of hemodynamicas for detelioration, BP is marginal needs echo to assess RV and further management Quality Stroke Does the patient have a stroke diagnosis?: No VTE Prior VTE?: No VTE Risk Level:: Medical - moderate - high VTE Device Contraindication: Treatment Not Indicated VTE Drug Contraindication: N/A - Med Ordered
[2022-04-06] MEDS: 0.9 % Sodium Chloride 1,000 ML 100 ML IVCONT (13:40)
[2022-04-06 13:46] LABS: Troponin-I High Sensitivity < 3.5 ng/L (<3.5-17.0)
--- NOTE | 2022-04-06 15:00 | MHC.CM.PN ---
IMM 04/06/22, EMR REVIEWED PT ADMITTED W/A PE, HEMATOLGY/ONCOLOGY CONSULT PENDING, PLAN FOR PT TO TRANSFER TO [facility] AVAILABLE, CM MET W/PT AND LUISITO AND DTR ALSO AT BEDSIDE, PT CAN SPEAK FOR HERSELF HOWEVER LETS ANSWER MANY QUESTIONS, HOSPITALIST AWARE, THEY ARE NOT THRILLED PT IS IN ED OVER AND NOT ON UNIT, CM ASSURED PT WOULD BE TRANSFERRED SOON A BED WAS AVAILABLE, PT REPORTS SHE IS LEGALLY BLIND, USES A WHITE CANE WHEN OUTSIDE THEIR HOMES, PT HAS NO HOME SERVICES, SEEM TO BE OPEN TO VNA IF NEEDED, PT AND HAVE HOME IN [facility] AND PT WAS RECENTLY SEEN BY ONE OF THE PA'S AT [facility] LOCAL PCP MIRANDA LOYA IN THE [facility]. PT AND FAMILY REQUESTING THAT MEDICAL RECORDS BE SENT TO MULTIPLE PROVIDERS, THEY ARE AWARE THAT D/C SUMMARY IS TYPICALLY SENT TO PCP AND COULD PROBABLY BE SENT TO [place] AND [place] PCP'S, PT AND FAMILY REQUESTING RECORDS ALSO BE SENT TO HEUMATOLOGIST [facility] IN [place], CM DID EXPLAIN THEY WILL NEED TO MAKE REQUEST THROUGH MEDICAL RECORDS AND THAT CAN BE DONE 2 DAYS AFTER D/C. ANTIC PT WILL D/C HOME TO [facility] W/NO SERVICES VS NEW VNA, FAMILY FOR TRANSPORT [place] PCP: DANIEL [facility] [place] PCP MIRANDA LOYA [facility]
[2022-04-06 16:14] LABS: Glucose, Whole Blood 88 mg/dL (60-115)
[2022-04-06] MEDS: Butalb/Acetamin/Caff 50/325/40 TABLET 1 TAB PO (17:12)
[2022-04-06] MEDS: Ezetimibe 10 MG TABLET PO (20:26)
[2022-04-06] MEDS: DULoxetine HCl 60 MG CAPSULE.DR PO (20:27)
[2022-04-06 21:34] LABS: Glucose, Whole Blood 103 mg/dL (60-115)
[2022-04-06] MEDS: Temazepam 15 MG CAPSULE PO (22:50)
[2022-04-07] MEDS: 0.9 % Sodium Chloride Flush 3 ML SYRINGE IVFLUSH ×3 (00:31→17:06)
[2022-04-07 05:31] VITALS: BP 102/51; PULSE 68; RESP 16; TEMP 36.7; O2SAT 94
[2022-04-07] MEDS: Enoxaparin Sodium 80 MG/0.8 ML SYRINGE 70 MG SUBCUT ×2 (06:22→17:45)
--- NOTE | 2022-04-07 07:00 | CA_ITS ---
Transthoracic Echocardiogram Patient (Last, First, Middle): Daxa Tobias, Gender: Female Date of : 1945 Age: 76 Procedure Date: 04/07/2022 Procedure Type: Transthoracic Echocardiogram Location: ER Height: 167.64 cm Weight: 73.03 kg BSA: 1.82 m2 Heart Rate: bpm BP: 91 / 53 mmHg Preload Supervisor: CARMELO Referring MD: Hong Green MD Retail Assistant Store Manager: Francisco Lujan MD Symptoms: pulm embolism; ALMAZAN Study Quality: Adequate ECG Rhythm: Sinus Conclusions: - 1. Normal LV systolic function with impaired relaxation filling pattern 2. Normal cardiac valvular Doppler 3. Normal RV systolic pressure 4. No gross pericardial effusion 5. Normal RV size and systolic function Findings Left Ventricle Normal left ventricular size, thickness, and systolic function. The visually estimated ejection fraction is between 60-65%. Spectral Doppler is indicative of an impaired relaxation filling pattern. E/E prime ratio is between 8 and 15 consistent with indeterminate filling pressures. Peak GLS is -22.2% within normal limits Right Ventricle Normal right ventricular cavity size and systolic function. Atria The left atrium is normal in size. There is no evidence of interatrial shunt. The right atrium is normal in size. Aortic Valve Normal aortic valve structure and function. There is no aortic valve stenosis. There is no aortic valve regurgitation. Mitral Valve Normal mitral valve structure and function. There is trace mitral valve regurgitation. There is no mitral valve stenosis. Pulmonic Valve The pulmonic valve is likely normal. Tricuspid Valve Normal tricuspid valve structure. There is trace tricuspid valve regurgitation. The right ventricular systolic pressure is normal. The right ventricular systolic pressure is 20 mmHg. Normal right atrial pressure. There is no evidence of pulmonary hypertension. Great Vessels All visible segments of the aorta are normal in size. The pulmonary artery was not well visualized. Venous The inferior vena cava is normal in size and collapses greater than 50% with inspiration. Pericardium/Pleural There is no evidence of pericardial effusion. Prior Study Comparison No prior study available for comparison. Measurements 2D Linear Measurements IVSd: 0.75 0.6-0.9/0.6-1.0 cm LVIDd: 4.15 3.9-5.3/4.2-5.9 cm LVIDd Index: 2.28 2.4-3.2/2.2-3.1 cm/m2 LVIDs: 2.86 2.0-3.6 cm LVPWd: 0.55 0.7-1.1 cm LA Diam: 2.90 2.7-3.8/3.0-4.0 cm LAIDs Index: 1.59 1.5-2.3 cm/m2 LV Mass: 94.21 67-162/88-224 g LV Mass Index: 51.76 43-95/49-115 g/m2 LVOT Diam: 1.80 3.0+(-)1.3 cm 2D Systolic Function EF 4C: 63.10 >55% EF 2C: 67.60 >55% EF BiP: 65.70 >55% Mitral Valve MV Pk E: 0.83 MV PK A: 0.99 MV Decel Time: 168.00 E/A: 0.80 E'Lateral: 8.81 E'Medial: 6.85 E/E' Med: 12.10 E/E' Lat: 9.40 PHT: 49.00 MVA PHT: 4.49 Decel [place]: 4.92 Aortic Valve AoV Pk Lio: 1.25 AoV Mn Lio: 0.83 AoV VTI: 0.25 AoV Pk Grad: 6.00 Aov Mn Grad: 3.00 DANAY Cont.VTI: 2.85 LVOT LVOT Pk Lio: 1.38 LVOT Mn Lio: 0.91 LVOT VTI: 0.29 LVOT Pk Grad: 8.00 LVOT Mn Grad: 4.00 LVOT Diam: 1.80 LVOT Area: 2.54 Diastolic Function MV Pk E: 0.83 MV Pk A: 0.99 E/A: 0.80 E'Medial: 6.85 E/E' Med: 12.10 E' Laterial: 8.81 E/E' Lat: 9.40 Right Ventricle TAPSE (mm): 22.20 TVS' Lio: 16.70 Tricuspid Valve TR Pk Lio: 2.06 TR Pk Grad: 17.00 RA Press: 3.00 RVSP: 20.00 Great Vessels Aorta Sinus of Valsalva: 2.92 2.0-3.5 cm Ao Asc: 2.60 2.1-3.4 cm Pulmonary Valve PV Pk Lio: 0.91 Peak PV Grad: 3.00 Updated in Other Vendor System with Status of Final Francisco Lujan MD electronically signed on 04/07/2022 11:26:20 AM with status of Final
[2022-04-07 07:30] LABS: Glucose, Whole Blood 88 mg/dL (60-115)
[2022-04-07 08:35] VITALS: BP 106/62; PULSE 70; RESP 13; TEMP 36.6; O2SAT 97
--- NOTE | 2022-04-07 09:08 | HO.PM.IMPN ---
Subjective Subjective Date of Service: 04/07/22 Interval History: f/u for acute Pulmonary embolism complicated by syncope. Review of Systems denies any chest pain or abdominal pain or nausea vomiting a or any new complaints except she had a mild episode of sob/anxiety when was coming from bathroom this afternoon. Otherwise sitting comfortably and Talking with sentences. Physical Exam Vital Signs: Vital Signs: Last Vital Signs Temp 97.9 F 04/07/22 08:35 Pulse 70 04/07/22 08:35 Resp 13 04/07/22 08:35 BP 106/62 04/07/22 08:35 Pulse Ox 97 04/07/22 08:35 BMI result Body Mass Index 26.0 Appearance: Alert.? Oriented X3.? not in distress.? cvs: rrr, [id number] , no murmur res: fair air entry, no rales or wheezing abd: no rebound or guarding ,nt, bs present. ext pulses present , no cyanosis . neuro: axo3 , nonfocal. Objective Data Active Medications Acetaminophen (Acetaminophen 325 Mg Tablet) 650 mg PO Q6H PRN PRN Reason: Pain, Mild (Pain Scale 1-3) Acetaminophen/Butalbital/Caffeine (Butalb/Acetamin/Caff 50/325/40 Tablet) 1 tab PO Q6H PRN PRN Reason: Headache Last Admin: 04/06/22 17:12 Dose: 1 tab Documented by: ROSE Albuterol/Ipratropium (Albuterol/Iprat 2.5/0.5mg 3 Ml Ampul.Neb) 3 ml INHALE RQ4H PRN PRN Reason: Shortness of Breath/Wheezing Duloxetine HCl (Duloxetine Hcl 60 Mg Capsule.) 60 mg PO BEDTIME [facility] Last Admin: 04/06/22 20:27 Dose: 60 mg Documented by: AARON Ezetimibe (Ezetimibe 10 Mg Tablet) 10 mg PO BEDTIME [facility] Last Admin: 04/06/22 20:26 Dose: 10 mg Documented by: AARON Enoxaparin Sodium (Enoxaparin Sodium 80 Mg/0.8 Ml Syringe) 70 mg SUBCUT Q12H [facility] Last Admin: 04/07/22 06:22 Dose: 70 mg Documented by: KENNY Folic Acid (Folic Acid 1 Mg Tablet) 1 mg PO DAILY [facility] Last Admin: 04/06/22 09:10 Dose: 1 mg Documented by: JONATHAN Melatonin (Melatonin 3 Mg Tablet) 6 mg PO BEDTIME PRN PRN Reason: Insomnia Methotrexate (Methotrexate Sodium 2.5 Mg Tablet) 12.5 mg PO We@1000 [facility] Omeprazole (Omeprazole 20 Mg Capsule.Dr) 20 mg PO DAILY PRN PRN Reason: Acid Reflux Oxycodone HCl (Oxycodone Hcl Immed Release 5 Mg Tablet) 5 mg PO Q6H PRN PRN Reason: Pain, Moderate (Pain Scale 4-6 Last Admin: 04/06/22 10:10 Dose: 5 mg Documented by: JONATHAN Pharmacy Consult (Consult Rx Perform Med Rec) 1 each MISCELLANE ONCE PRN PRN Reason: Consult order Senna (Sennosides 8.6 Mg Tablet) 17.2 mg PO BEDTIME PRN PRN Reason: Constipation Last Admin: 04/06/22 10:14 Dose: 17.2 mg Documented by: JONATHAN Sodium Chloride (0.9 % Sodium Chloride Flush 3 Ml Syringe) 3 ml IVFLUSH QSHIFT [facility] Last Admin: 04/07/22 00:31 Dose: 3 ml Documented by: KENNY Temazepam (Temazepam 15 Mg Capsule) 15 mg PO BEDTIME PRN PRN Reason: Sleep Last Admin: 04/06/22 22:50 Dose: 15 mg Documented by: AARON Labs CBC & Chem 7: 04/06/22 07:02 04/06/22 07:02 Labs: Laboratory Results - last 24 hr 04/06/22 04/06/22 04/06/22 13:10 16:11 21:30 POC Glucose 88 103 Troponin I High Sens < 3.5 04/07/22 07:26 POC Glucose 88 Troponin I High Sens Assessment and Plan (1) Pulmonary emboli: Status: Acute Plan 76-year-old female with a past medical history of inflammatory arthritis, legally blind, depression presented to the hospital today with a chief complaint of shortness of breath/? Near syncope/ fall.? Noted to have pulmonary embolism.? Admitted for further management Near syncope/fall/ALMAZAN: concern that this is related to PE below EKG nonischemic Troponin negative echocardiogram seems fine Cardio evaluation noted- may need further workup out patiently. Pulmonary embolism:Right lower lobe thrombus/PE. Patient is started on Lovenox DVT studies are negative. Probable transition to Eliquis or Xarelto in a day or 2 Echo seems fine. Hypotension Resolved--not due to sepsis, IVF History of inflammatory arthritis:? ? Patient follows with associate professor of music as outpatient. continue home Percocet. as per discussion of rheumatology with family : does not continue methotrexate for now. History of depression: Continue home duloxetine ?DVT prophylaxis:? Patient on Lovenox. Code status:? Full code Inpatient: Syncope assocated with pulmonary and need close monitoring of hemodynamicas for detelioration, BP is marginal needs echo to assess RV and further management Quality Stroke Does the patient have a stroke diagnosis?: No VTE Prior VTE?: No VTE Risk Level:: Medical - moderate - high VTE Device Contraindication: Treatment Not Indicated VTE Drug Contraindication: N/A - Med Ordered
[2022-04-07] MEDS: Folic Acid 1 MG TABLET PO (10:22)
[2022-04-07] MEDS: Butalb/Acetamin/Caff 50/325/40 TABLET 1 TAB PO (10:29)
[2022-04-07 10:59] LABS: Glucose, Whole Blood 72 mg/dL (60-115)
[2022-04-07 11:14] VITALS: BP 121/58; PULSE 65; RESP 14; TEMP 36.6; O2SAT 95
[2022-04-07 12:00] VITALS: BP 121/58; PULSE 65; RESP 14; TEMP 36.6; O2SAT 95
--- NOTE | 2022-04-07 12:43 | P.CONCA_ITS ---
History of Present Illness History of Present Illness Date of Service: 04/07/22 Requesting physician: Ne Medina Consult reason: other (Pulmonary embolism and near syncope) Chief complaint: PE Narrative: I was consulted to see Daxa in cardiology consultation today for patient developing new onset symptoms of shortness of breath and had near-syncope about a week ago. Patient came to the hospital yesterday because of persistent more rtness of breath and was noted to have pulmonary embolism in the right lower lung. Then she has been started on therapy in and she says the symptoms have improved. 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 Patient said about 10 days ago she started developing increasing symptoms of shortness of breath. She had recently traveled from [place] on a train on March 16. He has been treated for inflammatory arthritis is multiple disease modifying agents. She said her medications were increased and she suddenly notice shortness of breath. Three days after onset of symptoms of shortness of breath she was apprised and then she developed sudden feeling of lightheadedness and she almost passed out. She says she had never lost consciousness. This made her to go to [facility] where she was seen in the emergency room evaluated and workup as per her was negative and she was observed there for 8 hours and subsequently discharged home with no obvious abnormality found at that time. She subsequently continued to remain short of breath and her neighbor physician advised her to come to the emergency room yesterday. On the workup she was noted to have pulmonary embolism in the right lower lung artery. She also complains of constant dull pressure from front to the back which is worse with deep breathing. Since yesterday she says however she has been feeling better. She denies any exertional chest pain recently. Denies any palpitations or full syncope. Denies any leg edema. Review of Systems Constitutional: Constitutional: Reports no additional constitutional complaints Eyes: Eyes: Reports no additional eye complaints Cardiovascular: Cardiovascular: Reports chest pain, Denies syncope, Denies leg edema, Reports lightheadedness, Denies palpitations and Reports dyspnea on exertion Respiratory: Respiratory: Reports no additional respiratory complaints and Reports dyspnea on exertion Gastrointestinal: Gastrointestinal: Reports no additional gastrointestinal complaints Genitourinary: Genitourinary: Reports no additional female genitourinary complaints Musculoskeletal: Musculoskeletal: Reports no additional musculoskeletal complaints Integumentary/Breasts: Skin/Breast: Reports system reviewed and no additional complaints, except as docu Neurologic: Reports system reviewed and no additional complaints, except as documented and Denies syncope Psychiatric: Psychiatric: Reports no additional psychiatric complaints Endocrine: Endocrine: Reports no additional endocrine complaints and Denies palpitations Hematologic/Lymphatic: Hematologic/Lymphatic: Reports no additional hematologic/lymphatic complaints [facility] Social History Social History Alcohol intake: never Patient Tobacco Use Status: Never used Tobacco Use of substances other than those prescribed or required for medical reasons: No Advance Directives: No Advance Directives Information Provided: No service: No Current occupational status: retired [employer] Allergies Allergy/AdvReac Type Severity Reaction Status Date / Time No Known Allergies Allergy Verified 04/05/22 15:06 Active Medications: Current Medications Acetaminophen (Acetaminophen 325 Mg Tablet) 650 mg PO Q6H PRN PRN Reason: Pain, Mild (Pain Scale 1-3) Acetaminophen/Butalbital/Caffeine (Butalb/Acetamin/Caff 50/325/40 Tablet) 1 tab PO Q6H PRN PRN Reason: Headache Last Admin: 04/07/22 10:29 Dose: 1 tab Documented by: Albuterol/Ipratropium (Albuterol/Iprat 2.5/0.5mg 3 Ml Ampul.Neb) 3 ml INHALE RQ4H PRN PRN Reason: Shortness of Breath/Wheezing Duloxetine HCl (Duloxetine Hcl 60 Mg Capsule.) 60 mg PO BEDTIME [facility] Last Admin: 04/06/22 20:27 Dose: 60 mg Documented by: Ezetimibe (Ezetimibe 10 Mg Tablet) 10 mg PO BEDTIME [facility] Last Admin: 04/06/22 20:26 Dose: 10 mg Documented by: Enoxaparin Sodium (Enoxaparin Sodium 80 Mg/0.8 Ml Syringe) 70 mg SUBCUT Q12H [facility] Last Admin: 04/07/22 06:22 Dose: 70 mg Documented by: Folic Acid (Folic Acid 1 Mg Tablet) 1 mg PO DAILY [facility] Last Admin: 04/07/22 10:22 Dose: 1 mg Documented by: Melatonin (Melatonin 3 Mg Tablet) 6 mg PO BEDTIME PRN PRN Reason: Insomnia Omeprazole (Omeprazole 20 Mg Capsule.) 20 mg PO DAILY PRN PRN Reason: Acid Reflux Oxycodone HCl (Oxycodone Hcl Immed Release 5 Mg Tablet) 5 mg PO Q6H PRN PRN Reason: Pain, Moderate (Pain Scale 4-6 Last Admin: 04/06/22 10:10 Dose: 5 mg Documented by: Pharmacy Consult (Consult Rx Perform Med Rec) 1 each MISCELLANE ONCE PRN PRN Reason: Consult order Senna (Sennosides 8.6 Mg Tablet) 17.2 mg PO BEDTIME PRN PRN Reason: Constipation Last Admin: 04/06/22 10:14 Dose: 17.2 mg Documented by: Sodium Chloride (0.9 % Sodium Chloride Flush 3 Ml Syringe) 3 ml IVFLUSH QSHIFT [facility] Last Admin: 04/07/22 10:23 Dose: 3 ml Documented by: Temazepam (Temazepam 15 Mg Capsule) 15 mg PO BEDTIME PRN PRN Reason: Sleep Last Admin: 04/06/22 22:50 Dose: 15 mg Documented by: Home Medications Medication Instructions Recorded Confirmed Last Taken Type duloxetine 60 mg capsule,delayed 1 cap PO BEDTIME 04/05/22 04/05/22 04/04/22 History release ezetimibe 10 mg tablet 1 tab PO BEDTIME 04/05/22 04/05/22 04/04/22 History folic acid 1 mg tablet 1 tab PO DAILY 04/05/22 04/05/22 04/04/22 History methotrexate sodium 2.5 mg tablet 5 tab PO WE 04/05/22 04/05/22 04/01/22 History omeprazole 20 mg capsule,delayed 1 cap PO DAILY PRN 04/05/22 04/05/22 Unknown History release oxycodone-acetaminophen 5 mg-325 1 tab PO Q6H PRN 04/05/22 04/05/22 Unknown History mg tablet temazepam 15 mg capsule 1 cap PO BEDTIME PRN 04/05/22 04/05/22 Unknown History Physical Exam Vital Signs: Vital Signs: Last Vital Signs Temp 97.8 F 04/07/22 12:00 Pulse 65 04/07/22 12:00 Resp 14 04/07/22 12:00 BP 121/58 L 04/07/22 12:00 Pulse Ox 95 04/07/22 12:00 BMI result Body Mass Index 26.0 Const: General: cooperative, comfortable, no acute distress, alert and awake Nutritional Appearance: average body habitus Orientation/consciousness: dar ent oriented x3 Limitations: no limitations HEENT: Head: Yes normocephalic and Yes atraumatic Neck: Neck: Yes trachea midline, Yes supple and Yes no JVD Chest: Chest palpation & inspection: normal inspection of the chest Resp: Effort & Inspection: decreased respiratory effort Auscultation: no rales, no rhonchi and no wheezes Cardio: Jugular venous distension: no JVD Palpation: normal PMI Rate: regular rate Rhythm: regular rhythm Heart sounds: S1 normal heart sound present, S2 normal heart sound present, no click, no gallops and no murmurs GI: Auscultation: normal bowel sounds Skin: General skin exam: no rashes or lesions noted Neuro: General: patient oriented x3 and no focal motor deficits Extrem: General: Yes no clubbing, cyanosis or edema Psych: Appearance: grossly normal Objective Labs and Meds Result diagrams: 04/06/22 07:02 04/06/22 07:02 Lab results: Laboratory Results - last 24 hr 04/06/22 04/06/22 04/06/22 13:10 16:11 21:30 POC Glucose 88 103 Troponin I High Sens < 3.5 04/07/22 04/07/22 07:26 10:54 POC Glucose 88 72 Troponin I High Sens EKG shows normal sinus rhythm normal EKG Echocardiogram shows normal biventricular function with no major cardiovascular abnormality and normal RV systolic pressure Assessment and Plan (1) Pulmonary emboli: Status: Acute Recent near-syncope and shortness of breath in a patient with noted pulmonary embolism on CTA. However her echocardiogram does not show any evidence of RV systolic strain or acute cor pulmonale I will and LV systolic function is within normal limits. Her pulmonary embolism burden also appears to be small. Her near-syncope could be intravascular volume depletion with a pulmonary embolism insult. Currently does not appear to have any significant symptoms. Her shortness of breath is improved with initiation of therapy. Continue full oral anticoagulation as planned. Consider Hematology consultation for further evaluation of cause for her pulmonary embolism and future treatment plan. Workup for hypercoagulable state should be pursued. Also evaluate her disease modifying agents for her inflammatory arthritis as a potential cause. Echocardiogram does not show any significant structural abnormality with the LV systolic function and cardiac valvular morphology and significant pulmonary hypertension. Her shortness of breath is out of proportion to her pulmonary embolism. However symptoms improving. Will consider outpatient workup from ischemic perspective she remains continuously short of breath. Avoid stress test in the setting of acute pulmonary embolism. Will sign of the case. Will follow with you as outpatient. Procedures Date of Service Date of Service: 04/07/22
--- NOTE | 2022-04-07 14:39 | P.CNHO_ITS ---
Subjective - Subjective Chief complaint: Shortness of breath Patient: new to practice Consult date: 04/07/22 Primary Care Provider: Nonstaff Physician HPI - Consult Narrative Reason for consult: Pulmonary embolism Narrative: Daxa Tobias is a 76 year old female with chronic inflammatory arthritis who was admitted after episode of near-syncope and ongoing intermittent shortness of breath. According to patient and her , her symptoms started around March 27. They live in [place] for most part of the year, they spend 2-3 months in the summer in [place]. They traveled back by train on 03/17/2022, they had their own compartment and she was not sitting all the time on the 16 hour train journey. She had received a new infusion of immuno modulatory agent for her inflammatory arthritis just before she traveled. She has been on methotrexate until this week. She feels that her onset of shortness of breath is related to the new infusion. She also noticed pain in the back side of her right chest. She does not describe it as completely pleuritic. She denies any fever or chills. She had no leg pain or swelling after the train journey. She was seen at [facility] a few days ago. She had workup including a D-dimer which was normal. Noncontrast CT chest was negative. No prior history of thromboembolism. She did take a Medrol Dosepak in the recent weeks. Two of her sisters have had pulmonary embolism. One was hospitalized and had multiple comorbidities and another sister may have had cancer. She is up-to-date with mammograms and colonoscopy. She underwent CT angiogram at [facility] which revealed a small right-sided pulmonary embolism. She has been admitted and is on Lovenox. Review of Systems - Constitutional Reports as per HPI, Denies anorexia, Denies fever(s), Denies lack of energy, Denies malaise, Denies poor appetite - Cardiovascular Denies chest pain with activity, Denies fast heart rate, Denies irregular heart rhythm, Denies leg swelling, Reports shortness of breath - Respiratory Reports no additional respiratory complaints, Denies chest congestion, Denies cough, Denies hemoptysis, Reports dyspnea - Gastrointestinal Reports no additional gastrointestinal complaints - Neurologic Reports no additional neurologic complaints, Denies syncope [facility] Medical History: Medical History (Last Updated 04/07/22 @ 18:17 by Bobbi Molina MD) Arthritis Legally blind Social History: Social History Tobacco History: Patient Tobacco Use Status: Never used Tobacco Substance Use History: Use of substances other than those prescribed or required for medical reasons : No Advance Directives: Advance Directives: No Advance Directives Information Provided: No Occupation Assessmet: service: No Current occupational status: retired Home Medications and Allergies Current Medications: Current Medications Acetaminophen (Acetaminophen 325 Mg Tablet) 650 mg PO Q6H PRN PRN Reason: Pain, Mild (Pain Scale 1-3) Acetaminophen/Butalbital/Caffeine (Butalb/Acetamin/Caff 50/325/40 Tablet) 1 tab PO Q6H PRN PRN Reason: Headache Last Admin: 04/07/22 10:29 Dose: 1 tab Documented by: Albuterol/Ipratropium (Albuterol/Iprat 2.5/0.5mg 3 Ml Ampul.Neb) 3 ml INHALE RQ4H PRN PRN Reason: Shortness of Breath/Wheezing Duloxetine HCl (Duloxetine Hcl 60 Mg Capsule.) 60 mg PO BEDTIME [facility] Last Admin: 04/06/22 20:27 Dose: 60 mg Documented by: Ezetimibe (Ezetimibe 10 Mg Tablet) 10 mg PO BEDTIME [facility] Last Admin: 04/06/22 20:26 Dose: 10 mg Documented by: Enoxaparin Sodium (Enoxaparin Sodium 80 Mg/0.8 Ml Syringe) 70 mg SUBCUT Q12H [facility] Last Admin: 04/07/22 06:22 Dose: 70 mg Documented by: Folic Acid (Folic Acid 1 Mg Tablet) 1 mg PO DAILY [facility] Last Admin: 04/07/22 10:22 Dose: 1 mg Documented by: Melatonin (Melatonin 3 Mg Tablet) 6 mg PO BEDTIME PRN PRN Reason: Insomnia Omeprazole (Omeprazole 20 Mg Capsule.) 20 mg PO DAILY PRN PRN Reason: Acid Reflux Oxycodone HCl (Oxycodone Hcl Immed Release 5 Mg Tablet) 5 mg PO Q6H PRN PRN Reason: Pain, Moderate (Pain Scale 4-6 Last Admin: 04/06/22 10:10 Dose: 5 mg Documented by: Pharmacy Consult (Consult Rx Perform Med Rec) 1 each MISCELLANE ONCE PRN PRN Reason: Consult order Senna (Sennosides 8.6 Mg Tablet) 17.2 mg PO BEDTIME PRN PRN Reason: Constipation Last Admin: 04/06/22 10:14 Dose: 17.2 mg Documented by: Sodium Chloride (0.9 % Sodium Chloride Flush 3 Ml Syringe) [address] [facility] Last Admin: 04/07/22 10:23 Dose: 3 ml Documented by: Temazepam (Temazepam 15 Mg Capsule) 15 mg PO BEDTIME PRN PRN Reason: Sleep Last Admin: 04/06/22 22:50 Dose: 15 mg Documented by: Home Medications Medication Instructions Recorded Confirmed Type duloxetine 60 mg capsule,delayed 1 cap PO BEDTIME 04/05/22 04/05/22 History release ezetimibe 10 mg tablet 1 tab PO BEDTIME 04/05/22 04/05/22 History folic acid 1 mg tablet 1 tab PO DAILY 04/05/22 04/05/22 History methotrexate sodium 2.5 mg tablet 5 tab PO WE 04/05/22 04/05/22 History omeprazole 20 mg capsule,delayed 1 cap PO DAILY PRN 04/05/22 04/05/22 History release oxycodone-acetaminophen 5 mg-325 1 tab PO Q6H PRN 04/05/22 04/05/22 History mg tablet temazepam 15 mg capsule 1 cap PO BEDTIME PRN 04/05/22 04/05/22 History Allergies Allergy/AdvReac Type Severity Reaction Status Date / Time No Known Allergies Allergy Verified 04/05/22 15:06 Physical Exam Vital signs: Vital Signs Temp 97.8 F 04/07/22 12:00 Pulse 65 04/07/22 12:00 Resp 14 04/07/22 12:00 BP 121/58 L 04/07/22 12:00 Pulse Ox 95 04/07/22 12:00 Intake & Output 04/06/22 04/07/22 04/07/22 18:59 06:59 18:59 Intake Total 1000 / 2360 1360 / 2360 Output Total 200 / 200 Balance 1000 / 2160 1160 / 2160 Urine Output (Average ml/kg/hr) 0.23 Intake: Intake, Oral Amount 360 / 360 Intake, IV Amount 1000 / 2000 1000 / 2000 0.9 % Sodium Chloride 1,000 ml 1000 / 1000 @ 100 mls/hr IVCONT .Q10H [facility] Rx#:[id number] Dextrose 5 % and 0.9 % NaCl 1, 1000 / 1000 000 ml @ 75 mls/hr IVCONT . [id number] [facility] Rx#:[id number] Output: Output, Urine Amount 200 / 200 Other: Dinner % Eaten 100% Number of Unmeasured Voids 1 Urine Bathroom Bathroom Stool Bathroom Bathroom Stool Amount Large Moderate Stool Color Brown Stool Consistency Loose Loose Weight 73.2 kg - Constitutional Present: no acute distress - Routine HEENT Exam Head: Present: normal inspection Comments: She is legally blind - Routine Neck Exam Present: supple, full ROM - Routine Respiratory Exam Present: accessory muscle use - Routine Cardiovascular Exam Cardiovascular: Present: S1, S2 - Routine Extremities Exam Present: normal inspection. Absent: joint swelling - Routine Skin Exam Present: intact. Absent: cyanosis - Routine Neurological Exam Present: alert, oriented X3 - Routine Psychiatric Exam Present: good insight Hem/Onc Consult Result - Labs CBC & Chem 7: 04/06/22 07:02 04/06/22 07:02 Assessment and Plan Patient Active problem list reviewed?: Yes (1) Pulmonary emboli Status: Acute Assessment and plan: 1. This is a 76-year-old woman with chronic inflammatory arthritis, bowel disease/inflammatory colitis who is admitted with pulmonary embolism. CT angiogram showed a small thrombus in the right lower lobe posterior basal segmental branch. D-dimer was only slightly elevated, 320 NG/mL. She has been receiving Lovenox 70 mg every 12 hours. Bilateral lower extremity Doppler was negative for DVT. Echocardiogram is normal. She continues to have persistent symptoms of feeling winded and short of breath with minimal exertion like walking to the bathroom. Her oxygen levels have remained normal. She has had cardiology consultation. Her persistent symptoms are probably not related to pulmonary embolism. I have recommended that she continue with anticoagulation upon discharge for at least 3-6 months. It is not entirely clear if the DVT is provoked or not. She did have recent travel, she has been on new medications for her inflammatory arthritis and was also treated briefly with prednisone which could all have contributed. However, there is family history of thromboembolism. Thrombophilia workup although not routinely recommended, has already been submitted and is awaited. Checking for homocystine level is no longer recommended for thromboembolism. We also discussed oral anticoagulants with direct thrombin inhibitors as well as vitamin K antagonist, warfarin. Depending on cost and insurance coverage, they will decide. I thank you for this consultation. - Time Spent With Patient Time Spent with Patient (in minutes): 20
[2022-04-07] MEDS: oxyCODONE HCl Immed Release 5 MG TABLET PO (16:52)
[2022-04-07 17:33] LABS: Homocysteine 13.8 umol/L (<10.4)
--- NOTE | 2022-04-07 18:06 | PC.NURSE ---
pt up to use restroom on the way back she reported feeling sob. another rn reported to this play writer that the pt was noted to be sob. pt's o2 sat 99-100% r/a. vss. this play writer did note pt to be sob while talking with her. 2L n/c applied, pt's respirations regular. pt reported felling better with the oxygen. Dr. Medina aware, spoke with pt with this play writer present.
[2022-04-07 20:02] VITALS: BP 103/53; PULSE 64; RESP 12; O2SAT 96
--- NOTE | 2022-04-07 20:19 | PC.NURSE ---
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 at 8pm we notified the that visiting hours were over, he became upset with this nurse and stated that Dr. Calderon told him that he could stay, he also stated that this hospital is ridiculous that she has been kept in an overflow bed when she needs a critical care stepdown bed, this nurse politely told the that we have a telemetry floor but not an actual ccsdu unit. The states that this hospital is ridiculous, he asked this nurses name and stated he would be notifying those in charge about our conversation. This nurse called the nursing supervisor liquefaction on staff to tell him of the situation that had been continuing, patients was continuing to be intrusive as nursing staff was caring for other patients, would interrupt staff while in other patients rooms.
[2022-04-07] MEDS: DULoxetine HCl 60 MG CAPSULE.DR PO (21:51)
[2022-04-07] MEDS: Ezetimibe 10 MG TABLET PO (21:51)
[2022-04-07] MEDS: Temazepam 15 MG CAPSULE PO (22:04)
[2022-04-08] VITALS (8 sets, daily range): BP systolic 97–122; BP diastolic 52–57; PULSE 62–79; RESP 12–18; TEMP 36–36.6; O2SAT 95–100; BMI 26.0
[2022-04-08] MEDS: Enoxaparin Sodium 80 MG/0.8 ML SYRINGE 70 MG SUBCUT ×2 (06:46→17:15)
[2022-04-08] MEDS: 0.9 % Sodium Chloride Flush 3 ML SYRINGE IVFLUSH (08:04)
--- NOTE | 2022-04-08 09:28 | PM.CNPUL ---
History of Present Illness History of Present Illness Consult date: 04/08/22 Requesting physician: Ne Medina Reason for consult: chest pain and DVT Chief complaint: PE Narrative: Mrs. Tobias is say is 76 years old very pleasant female, Home I have seen for pulmonary consultation at request of Dr. Medina. She has been here in [facility] since 04/05, Patient presented with near syncopal episode and also discomfort in the back of right lower chest, She had mild intermittent shortness of breath for a few days. She has no previous, underlying pulmonary disease. CTA of the chest did show a pulmonary embolism in the posterior segment of right lower lobe. Patient treated with oxygen supplements and has bee on anticoagulation with Lovenox and now transition to oral anti coagulant, Eliquis. Patient is feeling better except for him some residual discomfort in the right lower chest. She is not requiring any bronchodilators or oxygen. Image it his past history, traveled from [place] by train on 03/17, is 16 hours ride, but in a private compartment. Before coming from [place] as she had and infusion of immune modulator agent for inflammatory arthritis. She is being treated for chronic inflammatory arthritis, with monthly infusion and also is on methotrexate . Family history indicates that her 2 sisters have had pulmonary embolism, but in both cases, related to some surgery on lower extremities. Review of Systems Review of Systems: Yes all other systems are reviewed and are negative Constitutional: Constitutional: Denies chills and Denies fever(s) Eyes: Eyes: Reports blurry vision and Reports loss of vision (Patient is legally blind) ENT: Reports system reviewed and no additional complaints, except as documented Cardiovascular: Cardiovascular: Denies irregular heart rhythm and Denies leg edema Respiratory: Respiratory: Reports as per HPI Gastrointestinal: Gastrointestinal: Reports no additional gastrointestinal complaints Musculoskeletal: Musculoskeletal: Reports arthralgias (Chronic inflammatory arthritis) Integumentary/Breasts: Skin/Breast: Reports system reviewed and no additional complaints, except as docu Neurologic: Reports system reviewed and no additional complaints, except as documented, Reports loss of vision (Patient is legally blind) and Reports tremor(s) Endocrine: Endocrine: Reports no additional endocrine complaints Hematologic/Lymphatic: Hematologic/Lymphatic: Reports no additional hematologic/lymphatic complaints Allergic/Immunologic: Allergic/Immunologic: Reports no additional allergic/immunologic complaints [facility] Past Medical History Medical History Arthritis Legally blind Social History Social History Alcohol intake: never Patient Tobacco Use Status: Never used Tobacco Use of substances other than those prescribed or required for medical reasons: No Advance Directives: No Advance Directives Information Provided: No service: No Current occupational status: retired Meds Allergies Allergy/AdvReac Type Severity Reaction Status Date / Time No Known Allergies Allergy Verified 04/05/22 15:06 Active Medications: Current Medications Acetaminophen (Acetaminophen 325 Mg Tablet) 650 mg PO Q6H PRN PRN Reason: Pain, Mild (Pain Scale 1-3) Acetaminophen/Butalbital/Caffeine (Butalb/Acetamin/Caff 50/325/40 Tablet) 1 tab PO Q6H PRN PRN Reason: Headache Last Admin: 04/07/22 10:29 Dose: 1 tab Documented by: Albuterol/Ipratropium (Albuterol/Iprat 2.5/0.5mg 3 Ml Ampul.Neb) 3 ml INHALE RQ4H PRN PRN Reason: Shortness of Breath/Wheezing Duloxetine HCl (Duloxetine Hcl 60 Mg Capsule.) 60 mg PO BEDTIME [facility] Last Admin: 04/07/22 21:51 Dose: 60 mg Documented by: Ezetimibe (Ezetimibe 10 Mg Tablet) 10 mg PO BEDTIME ZENON Last Admin: 04/07/22 21:51 Dose: 10 mg Documented by: Enoxaparin Sodium (Enoxaparin Sodium 80 Mg/0.8 Ml Syringe) 70 mg SUBCUT Q12H [facility] Last Admin: 04/08/22 06:46 Dose: 70 mg Documented by: Folic Acid (Folic Acid 1 Mg Tablet) 1 mg PO DAILY [facility] Last Admin: 04/08/22 08:10 Dose: Not Given Documented by: Melatonin (Melatonin 3 Mg Tablet) 6 mg PO BEDTIME PRN PRN Reason: Insomnia Omeprazole (Omeprazole 20 Mg Capsule.) 20 mg PO DAILY PRN PRN Reason: Acid Reflux Oxycodone HCl (Oxycodone Hcl Immed Release 5 Mg Tablet) 5 mg PO Q6H PRN PRN Reason: Pain, Moderate (Pain Scale 4-6 Last Admin: 04/07/22 16:52 Dose: 5 mg Documented by: Pharmacy Consult (Consult Rx Perform Med Rec) 1 each MISCELLANE ONCE PRN PRN Reason: Consult order Senna (Sennosides 8.6 Mg Tablet) 17.2 mg PO BEDTIME PRN PRN Reason: Constipation Last Admin: 04/06/22 10:14 Dose: 17.2 mg Documented by: Sodium Chloride (0.9 % Sodium Chloride Flush 3 Ml Syringe) 3 ml IVFLUSH QSHIFT ZENON Last Admin: 04/08/22 08:04 Dose: 3 ml Documented by: Temazepam (Temazepam 15 Mg Capsule) 15 mg PO BEDTIME PRN PRN Reason: Sleep Last Admin: 04/07/22 22:04 Dose: 15 mg Documented by: Home Medications Medication Instructions Recorded Confirmed Last Taken Type duloxetine 60 mg capsule,delayed 1 cap PO BEDTIME 04/05/22 04/05/22 04/04/22 History release ezetimibe 10 mg tablet 1 tab PO BEDTIME 04/05/22 04/05/22 04/04/22 History folic acid 1 mg tablet 1 tab PO DAILY 04/05/22 04/05/22 04/04/22 History methotrexate sodium 2.5 mg tablet 5 tab PO WE 04/05/22 04/05/22 04/01/22 History omeprazole 20 mg capsule,delayed 1 cap PO DAILY PRN 04/05/22 04/05/22 Unknown History release oxycodone-acetaminophen 5 mg-325 1 tab PO Q6H PRN 04/05/22 04/05/22 Unknown History mg tablet temazepam 15 mg capsule 1 cap PO BEDTIME PRN 04/05/22 04/05/22 Unknown History Physical Exam Vital Signs: Vital Signs: Last Vital Signs Temp 96.8 F 04/08/22 07:52 Pulse 67 04/08/22 07:52 Resp 12 04/08/22 07:52 BP 111/53 L 04/08/22 07:52 Pulse Ox 96 04/08/22 07:52 BMI result Body Mass Index 26.0 Const: General: healthy appearing, comfortable (Except for mild discomfort over the right lower chest,in back), no acute distress, alert and awake Orientation/consciousness: patient oriented x3 HEENT: Head: Yes normal to inspection General nose exam: No nasal polyps present and No nasal discharge present Face and sinus: Yes sinuses nontender Mouth: oropharynx normal Throat: Yes posterior oropharynx normal Eyes: Other: Patient is legally blind General: appearance normal, both eyes and all related structures Neck: Neck: Yes no lymphadenopathy, Yes trachea midline and Yes no JVD Thyroid: Thyroid normal Chest: Chest palpation & inspection: normal inspection of the chest, normal palpation of entire chest wall and no tenderness Resp: Other: Percussion note is resonant, breath sounds are good on both sides, slightly decreased over the right base, A few fine inspiratory crepitations heard over the right base. No wheezes Cardio: Palpation: normal PMI Rate: regular rate Rhythm: regular rhythm Heart sounds: no gallops and no murmurs GI: Palpation (GI): Soft to palpation, nontender, No hepatosplenomegaly present and no masses Auscultation: normal bowel sounds Back/Spine/Pelvis: Thoracic/Lumbar Spine: thoracic and lumbar spine normal to inspection Skin: General skin exam: no rashes or lesions noted Neuro: General: patient oriented x3 and no focal motor deficits Cranial nerves: Yes CN's II-XII intact bilaterally Extrem: General: Yes normal to inspection, Yes no clubbing, cyanosis or edema and Yes no calf tenderness Psych: Speech and movement: Normal speech and movement present Results Laboratory Findings CBC and BMP: 04/06/22 07:02 04/06/22 07:02 ABG, PT/INR, D-dimer: PT/INR, D-dimer PT 11.6 SEC (9.9-13.0) 04/05/22 15:50 INR 1.0 (0.9-1.1) 04/05/22 15:50 Abnormal lab findings: Abnormal Labs 04/05/22 04/05/22 04/05/22 15:50 15:50 21:21 WBC RBC Neut % (Auto) Cloud % (Auto) 16.3 H Eos % (Auto) Absolute Neuts (auto) Chloride Anion Gap C-Reactive Protein 0.72 H Homocysteine 13.8 H 04/06/22 04/06/22 07:02 07:02 WBC 4.7 L RBC 4.13 L Neut % (Auto) 36.8 L Cloud % (Auto) 20.0 H Eos % (Auto) 4.9 H Absolute Neuts (auto) 1.7 L Chloride 110 H Anion Gap 10 L C-Reactive Protein Homocysteine Diagnostic Findings CT scan - chest: report reviewed and image reviewed Assessment and Plan (1) Pulmonary emboli: Status: Acute Plan The patient does have evidence of pulmonary embolism in the right lower lobe. This may be due to combination of recent long travel by train, with underlying history of chronic inflammatory arthritis, recent infusion of immune modulator agent. Whether she has some degree of thrombophilia , is not clear but seems to be unlikely. Workup has been initiated ,results pending. Clinically she is stable and not in distress, except for mild discomfort over the right lower lobe posteriorly. This should resolve in the next few days. Recc . Agree with the current plan and patient should be on anticoagulation with an oral anti coagulant for 6 months. A repeat CTA of the chest may be done in 4-6 weeks to make sure that the thrombus is resolving. She can make arrangement for follow-up as outpatient with her primary care physician, are we will be glad to see her here at the Pulmonary office, if she would like to. Procedures Date of Service Date of Service: 04/08/22
--- NOTE | 2022-04-08 12:49 | PC.NURSE ---
Pt is A&Ox4, assit x 1 due to being legally blind. Pain 3/10 to R thoracic back region from the PE. Pt is aware of awaiting pulm consult and then reeval at this time. Pt is NSR on monitor, O2 sat good on room air, call echavarria within reach. Will continue to monitor.
--- NOTE | 2022-04-08 13:49 | PC.NURSE ---
Pt OOB to BR with Assist x1 (her ) upon standing and returning to the pt's room, pt became increasingly SOB and lightheaded, pt wheeled back to room. Orthostatic VS obtained at this time and pt found to be orthostatic. made aware. Call echavarria within reach, will continue to monitor.
[2022-04-08] MEDS: 0.9 % Sodium Chloride 1,000 ML 100 ML IVCONT (15:35)
--- NOTE | 2022-04-08 15:50 | P.PNIM_ITS ---
Subjective Subjective Date of Service: 04/08/22 Interval History: Pulmonary embolism, orthostatic hypotension possible Review of Systems patient could stay somewhat dizzy standing up when she went to the bathroom. Denies any chest pain nausea vomiting has some short of breath intermittent which is improving Physical Exam Vital Signs: Vital Signs: Last Vital Signs Temp 97.3 F 04/08/22 11:27 Pulse 77 04/08/22 13:44 Resp 13 04/08/22 11:27 BP 97/57 L 04/08/22 13:44 Pulse Ox 98 04/08/22 11:27 BMI result Body Mass Index 26.0 Appearance: Alert.? Oriented X3.? not in distress.? cvs: rrr, [id number] , no murmur res: fair air? entry, no rales or wheezing abd: no rebound or guarding ,nt, bs present. ext pulses present , no cyanosis . neuro: axo3 , nonfocal. Objective Data Active Medications Acetaminophen (Acetaminophen 325 Mg Tablet) 650 mg PO Q6H PRN PRN Reason: Pain, Mild (Pain Scale 1-3) Acetaminophen/Butalbital/Caffeine (Butalb/Acetamin/Caff 50/325/40 Tablet) 1 tab PO Q6H PRN PRN Reason: Headache Last Admin: 04/07/22 10:29 Dose: 1 tab Documented by: JASSI Albuterol/Ipratropium (Albuterol/Iprat 2.5/0.5mg 3 Ml Ampul.Neb) 3 ml INHALE RQ4H PRN PRN Reason: Shortness of Breath/Wheezing Duloxetine HCl (Duloxetine Hcl 60 Mg Kris.) 60 mg PO BEDTIME [facility] Last Admin: 04/07/22 21:51 Dose: 60 mg Documented by: PATRICK Ezetimibe (Ezetimibe 10 Mg Tablet) 10 mg PO BEDTIME [facility] Last Admin: 04/07/22 21:51 Dose: 10 mg Documented by: PATRICK Enoxaparin Sodium (Enoxaparin Sodium 80 Mg/0.8 Ml Syringe) 70 mg SUBCUT Q12H [facility] Last Admin: 04/08/22 06:46 Dose: 70 mg Documented by: PATRICK Folic Acid (Folic Acid 1 Mg Tablet) 1 mg PO DAILY [facility] Last Admin: 04/08/22 08:10 Dose: Not Given Documented by: ZAIRE Non-Admin Reason: Patient Refused Sodium Chloride (Ns) 1,000 mls @ 100 mls/hr IVCONT .Q10H [facility] Last Admin: 04/08/22 15:35 Dose: 100 mls/hr Documented by: ZAIRE Melatonin (Melatonin 3 Mg Tablet) 6 mg PO BEDTIME PRN PRN Reason: Insomnia Omeprazole (Omeprazole 20 Mg Capsule.Dr) 20 mg PO DAILY PRN PRN Reason: Acid Reflux Oxycodone HCl (Oxycodone Hcl Immed Release 5 Mg Tablet) 5 mg PO Q6H PRN PRN Reason: Pain, Moderate (Pain Scale 4-6 Last Admin: 04/07/22 16:52 Dose: 5 mg Documented by: JASSI Pharmacy Consult (Consult Rx Perform Med Rec) 1 each MISCELLANE ONCE PRN PRN Reason: Consult order Senna (Sennosides 8.6 Mg Tablet) 17.2 mg PO BEDTIME PRN PRN Reason: Constipation Last Admin: 04/06/22 10:14 Dose: 17.2 mg Documented by: JONATHAN Sodium Chloride (0.9 % Sodium Chloride Flush 3 Ml Syringe) 3 ml IVFLUSH QSHIFT [facility] Last Admin: 04/08/22 08:04 Dose: 3 ml Documented by: ZAIRE Temazepam (Temazepam 15 Mg Capsule) 15 mg PO BEDTIME PRN PRN Reason: Sleep Last Admin: 04/07/22 22:04 Dose: 15 mg Documented by: PATRICK Labs CBC & Chem 7: 04/06/22 07:02 04/06/22 07:02 Labs: Laboratory Results - last 24 hr 04/05/22 21:21 Homocysteine 13.8 H Assessment and Plan (1) Pulmonary emboli: Status: Acute Plan 76-year-old female with a past medical history of inflammatory arthritis, legally blind, depression presented to the hospital today with a chief complaint of shortness of breath/? Near syncope/ fall.? Noted to have pulmonary embolism.? Admitted for further management Near syncope/fall/ALMAZAN: concern that this is related to PE below EKG nonischemic Troponin negative echocardiogram seems fine Cardio evaluation noted- may need further workup out patiently. Pulmonary embolism:Right lower lobe thrombus/PE. NM/NM pul perfusion Normal perfusion exam. Patient is started on Lovenox DVT studies are negative. Probable transition to Eliquis or Xarelto in a day or 2 Echo seems fine. Hypotension Resolved--not due to sepsis, IVF History of inflammatory arthritis:? ? 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 continue home Percocet. as per discussion of rheumatology with family : does not continue methotrexate for now. History of depression: Continue home duloxetine orthostasis: Added IV fluid, Thanh stocking ?DVT prophylaxis:? Patient on Lovenox. Code status:? Full code Inpatient: orthostasis, pulmonary embolism. Quality Stroke Does the patient have a stroke diagnosis?: No VTE Prior VTE?: No VTE Risk Level:: Medical - moderate - high VTE Device Contraindication: Treatment Not Indicated VTE Drug Contraindication: N/A - Med Ordered
[2022-04-08] MEDS: Butalb/Acetamin/Caff 50/325/40 TABLET 1 TAB PO (17:13)
[2022-04-08 21:01] LABS: Anti-Thrombin III Antigen 95 % (80-120)
[2022-04-08] MEDS: Ezetimibe 10 MG TABLET PO (21:02)
[2022-04-08] MEDS: DULoxetine HCl 60 MG CAPSULE.DR PO (21:02)
[2022-04-08 21:21] LABS: Cardiolipin IgG Ab <2.0 GPL-U/mL; Cardiolipin IgM Ab 2.5 MPL-U/mL
[2022-04-08] MEDS: Temazepam 15 MG CAPSULE PO (22:01)
[2022-04-08 22:31] LABS: Protein C Activity 129 % (70-180); Protein S Activity rflx Tot&Fr 63 % (60-140)
[2022-04-09] MEDS: 0.9 % Sodium Chloride 1,000 ML 100 ML IVCONT (01:37)
[2022-04-09 03:43] VITALS: BP 110/57; PULSE 60; RESP 15; TEMP 36.4; O2SAT 94
[2022-04-09] MEDS: Enoxaparin Sodium 80 MG/0.8 ML SYRINGE 70 MG SUBCUT (06:13)
[2022-04-09 07:55] VITALS: BP 116/58; PULSE 65; RESP 17; TEMP 36.4; O2SAT 93
[2022-04-09] MEDS: 0.9 % Sodium Chloride Flush 3 ML SYRINGE IVFLUSH (08:21)
--- NOTE | 2022-04-09 09:31 | PM.PNPUL ---
Subjective Subjective Date of Service: 04/09/22 Principal diagnosis: PE Interval history: Patient is feeling much better, has very little cough or chest pain. No shortness of breath or respiratory distress. She is of O2. Objective Data Labs CBC & Chem 7: 04/06/22 07:02 04/06/22 07:02 Labs: Laboratory Results - last 24 hr 04/05/22 04/05/22 20:55 20:55 Protein C Activity 129 Protein S Activity 63 Antithrombin III Ag 95 Anti-Cardiolipin IgG Ab <2.0 Anti-Cardiolipin IgM Ab 2.5 Physical Exam Vital Signs: Vital Signs: Last Vital Signs Temp 97.5 F 04/09/22 07:55 Pulse 65 04/09/22 07:55 Resp 17 04/09/22 07:55 BP 116/58 L 04/09/22 07:55 Pulse Ox 93 04/09/22 07:55 BMI result Body Mass Index 26.0 Resp: Other: Percussion note resonant, breath sounds are equal on both sides, There are inspiratory crepitations over the right base c/w atelectasis. Procedures Date of Service Date of Service: 04/09/22 Assessment and Plan Assessment and plan (1) Dyspnea: Problem details: Improved and patient seems to be at baseline. Status: Acute (2) Pulmonary emboli: Problem details: CTA did show a thrombosis in the right lower lobe, indicating pulmonary embolism. Nuclear scan, reported to be negative for any perfusion defect. I recommend that we go by the finding of CTA and treat her for pulmonary embolism, but may be only for 3 months. May choose an oral anticoagulants such as Eliquis or Xarelto. In addition to PE. Patient also has mild atelectasis of the right base. For this she should be doing deep breathing exercises. Status: Acute Time Spent With Patient Time: Total time spent is greater than 50% in coordination of care (as documented) at patient's floor/unit and/or counseling patient: Progress Note: Quality Stroke Does the patient have a stroke diagnosis?: No
[2022-04-09 11:26] VITALS: BP 114/58; PULSE 70; RESP 17; TEMP 36.6; O2SAT 96
[2022-04-09 11:45] VITALS: BP 114/58; PULSE 70; O2SAT 96
--- NOTE | 2022-04-09 14:58 | MHC.CM.PN ---
Patient has been medically cleared for dc to home ([address] [place] [address])today with services. [facility] is the only available [facility] that services [place] and SOC is 04/17/22 (MD,Patient and aware of this SOC date). Second IMM addressed with Patient and her and original has been given to them and a copy has been placed on the chart. CM faxed 30 day free Eliquis Voucher to [facility] in [place], [place] at [phone] to Korey's attention. Pharmacist/Korey has confirmed that Patient will receive 74 tablets free of charge today that will last [address] Medina has faxed a script to [facility] that can be filled at a later date.
--- NOTE | 2022-04-09 15:03 | P.DS_ITS ---
DS: Providers Provider Date of Service: 04/09/22 Date of admission: 04/05/22 19:56 Primary care physician: Nonstaff Physician Consults: 04/06/22 16:08 Consult to Cardiology Routine Consulting Provider: Deon Tsang Reason for consultation: dyspnea on exertion, enlarged RV on CT Has provider been notified: No 04/08/22 08:13 Consult to Pulmonology Routine Consulting Provider: [facility] Reason for consultation: pulmonary embolism -intermitent sob Has provider been notified: No DS: Diagnosis Discharge Diagnosis (1) Dyspnea: Status: Acute (2) Pulmonary emboli: Status: Acute DS: Summary Hospital Course Hospital Course: ?76-year-old female with a past medical history of inflammatory arthritis, legally blind, depression presented to the hospital today with a chief complaint of shortness of breath.? Patient reports that for the past 1 week she has been having shortness of breath/ dyspnea on exertion; reports dry cough.? Denies any fevers.? Symptoms have been gradually worsening.? Four days ago she went to [facility] where she had D-dimer of 0.5; CT chest was done which showed no acute findings; subsequently patient was discharged home; today patient felt lightheaded and dizzy and fell on the floor, landed on the hip; denies any head strike or loss of consciousness. ? denies any trouble with ambulation after the fall. Subsequently came to the ER for further evaluation.? Denies any GI symptoms.? Patient also reports she has right lower back chest wall pain. Also spoke to the patient's family at bedside Review of all other systems is negative except mentioned above. Hospital course: patient was admitted for short of breath-found to have pulmonary embolism : cta -pulm embolism , v/q scan was fine patient was seen by Hematology, Pulmonary, cardio: Started on anticoagulation(eliquis) seems to be improving significantly, in addition patient was found to have orthostatic hypotension: Improved with hydration and Thanh stocking, as well as stopped oxycodone. patient was strongly advised to continue the Thanh stockings as well as walking slowly . patient was also seen by Cardiology- her heart echo seems fine,consider outpatient workup from ischemic perspective she remains continuously short of breath. cardiology may arrange than on appointment. ? Also evaluate her disease modifying agents for her inflammatory arthritis as a potential cause - for pulmonary embolism, metotraxate stopped during this admission and further use of anti-inflammatory as per PCP, consider out of patient rheumatology evaluation. Patient also had episode of headache, has history of headache : CT head was negative, she says that uses Tylenol at home. advise continue to use Tylenol and follow-up with PCP for further management. patient needs to follow-up with Cardiology and Hematology out patiently for further Management. Patient will be going home with VNA and PT. Above was discussed with the patient and her in detail length they both understand and in agreement with the above plan, time spent 70 minute. Time Spent with Patient Time attestation: Total time spent providing and/or coordinating discharge services: Discharge coordination time: Greater than 30 minutes Quality: Safe Use of Opioids Does Pt have an Active Cancer Diagnosis on the Problem List?: No Quality: Stroke Does the patient have a stroke diagnosis?: No Physical Exam Vital Signs: Vital Signs: Last Vital Signs Temp 97.8 F 04/09/22 11:26 Pulse 70 04/09/22 11:45 Resp 17 04/09/22 11:26 BP 114/58 L 04/09/22 11:45 Pulse Ox 96 04/09/22 11:45 BMI result Body Mass Index 26.0 ? Appearance: Alert.? Oriented X3.? not in distress.? cvs: rrr, [id number] , no murmur res: fair air? entry, no rales or wheezing abd: no rebound or guarding ,nt, bs present. ext pulses present , no cyanosis . neuro: axo3 , nonfocal. DS: Data Data Completed and Pending Labs on day of discharge: Laboratory Results - last 24 hr 04/05/22 04/05/22 20:55 20:55 Protein C Activity 129 Protein S Activity 63 Antithrombin III Ag 95 Anti-Cardiolipin IgG Ab <2.0 Anti-Cardiolipin IgM Ab 2.5 Additional Comments Additional comments: echo: Conclusions: - 1.? Normal LV systolic function with impaired relaxation ? ? ? filling pattern? 2.? Normal cardiac valvular Doppler? 3.? Normal RV systolic pressure? 4. No gross pericardial effusion ? 5.? Normal RV size and systolic function. NM/NM pul perfusion IMPRESSION: Normal perfusion exam. No suspicion for PE. CT/CT angio chest PE protocol IMPRESSION: Right lower lobe thrombus/PE. No additional thrombi seen. Dependent bibasilar atelectasis. ? Discharge Plan Discharge Patient Disposition: Home Health Service Discharge Diagnosis: orthostatic hypotension, pulmonary embolism. Referrals: [facility] [Outside] - 1 Week Physician,Venessataaddy [Primary Care Provider] - 1 Week Bobbi Molina MD [Physician] - 1 Week (follow up) Francisco Lujan MD [Physician] - 2 Weeks (follow up outpatient) Discharge Medications: Steve (BRONSON) T.E.DVioleta Knee Jgydtx-Q-Fzgi Misc See Rx Instructions .ROUTE .MEDSUPPLY Qty: 12 0RF Rx Instructions: As directed Eliquis 5 mg tablet 5 mg PO BID Qty: 74 0RF Rx Instructions: please take eliquis 2 tab po bid for 1week and then switch to eliquis 1 tab po bid. Continued omeprazole 20 mg capsule,delayed release(DR/EC) 1 cap PO DAILY PRN (Reason: Acid Reflux) 0RF folic acid 1 mg tablet 1 tab PO DAILY 0RF ezetimibe 10 mg tablet 1 tab PO BEDTIME 0RF duloxetine 60 mg capsule,delayed release(DR/EC) 1 cap PO BEDTIME 0RF temazepam 15 mg capsule 1 cap PO BEDTIME PRN (Reason: Sleep) 0RF Discontinued oxycodone-acetaminophen 5-325 mg tablet 1 tab PO Q6H PRN (Reason: pain) 0RF methotrexate sodium 2.5 mg tablet 5 tab PO WE 0RF Discharge Orders: Discharge Order (Routine); Ordered 04/09/22 Ordered By: Ne Medina Diet: advance to usual diet and regular diet Activity on Discharge: As tolerated Stand Alone Forms: Patient Portal Discharge page Care Plan Goals: patient was admitted for pulmonary embolism and short of breath: Started on anticoagulation seems to be improving significantly, in addition patient was found to have orthostatic hypotension: Improved with hydration and Thanh stocking, as well as stopped oxycodone. patient was strongly advised to continue the Thanh stockings as well as walking slowly . patient was also seen by Cardiology- her heart echo seems fine,consider outpatient workup from ischemic perspective she remains continuously short of breath. cardiology may arrange than on appointment. ? Also evaluate her disease modifying agents for her inflammatory arthritis as a potential cause - for pulmonary embolism-take eliquis 10 mg po bid (until 04/14/22 and eliquis 5 mg po bid on 04/15/22), metotraxate stopped during this admission and on hold -until sees pcp PCP, further use needs to be decided out patiently. Health Concerns: as above. Plan of Treatment: As above Assessment: As above.
[2022-04-09] MEDS: Acetaminophen 325 MG TABLET 650 MG PO (16:12)
[2022-04-10 04:16] LABS: DRVVT 1:1 Mix Interpretation Not Indicated; PTT (LAC) Screen 38 sec (<=40)
--- NOTE | 2022-04-10 11:50 | PM.EVENT ---
Event Note Date of Service: 04/10/22 Event Note: Patient and her call today that patient feels some short of breath intermittently- discussed with the detail that patient needs to get checked nearest emergency room or at least call her PCP.
[2022-04-12 21:21] LABS: Prothrombin 20210A NEGATIVE
[2022-04-13 20:46] LABS: Factor V Leiden NEGATIVE
== END 2022-04-09 16:45 | disposition home health service (06) | DRG 176 ==
LOC: HO.ED 17:11 → HO.EDOVER 20:20 → HO.IMC 04-08 14:49
PROVIDERS: Emergency Medicine; Internal Medicine; Admitting Provider Hospitalist; Emergency Provider Emergency Medicine Emergency Medical Services; PCP Family Medicine; Visit Provider Internal Medicine
DX: I26.99 Other pulmonary embolism without acute cor pulmonale (principal); J98.11 Atelectasis; M13.80 Other specified arthritis, unspecified site; H54.8 Legal blindness, as defined in USA; Z20.822 Contact with and (suspected) exposure to COVID-19; I95.9 Hypotension, unspecified; F32.A Depression, unspecified; R51.9 Headache, unspecified; Z79.899 Other long term (current) drug therapy
CPT/HCPCS: 0241U; 36415; 70450; 71275; 72170; 78580; 80048; 80076; 81003; 81240; 81241; 82947; 83090; 83690; 83880; 84484; 85025; 85301; 85302; 85303; 85305; 85306; 85379; 85597; 85610; 85613; 85652; 85730; 86140; 86147; 93005; 93306; 93970; 96372; 97162; 99285; A9540; J1650; Q9967

== ENCOUNTER → 2022-04-23 07:50 | Outpatient (REF) | payer MEDICARE, OTHER, SELFPAY ==
--- NOTE | ~2022-04-23 | NM_ITS ---
Myocardial perfusion study Indication: Shortness of breath evaluate for myocardial ischemia Technique: The patient was brought in for a Lexiscan perfusion study on 04/23/2022. Patient performed low-level exercise and was injected 0.4 mg of Lexiscan intravenously. Within a minute of injection, 25 mCi of sestamibi was given intravenously. Images were obtained using the SPECT gamma camera interlaced with the gating device. Images were obtained in supine position. Resting perfusion study was performed on 04/24/2022. Patient was administered 25 mCi of sestamibi intravenously at rest. Images were then obtained in supine position. Images obtained with and without CT attenuation. Total DLP 130 mGy-cm. Images were processed with the software and compared side to side in short axis, horizontal long axis and vertical long axis views. Findings: The stress perfusion study showed non attenuated images normal uptake of radiotracer in all segments of LV myocardium. Attenuation corrected images show minimally reduced uptake in the apex of the LV myocardium.. The gated study shows normal LV systolic function with calculated LVEF of 65%. LV cavity is normal in size. The gated study shows normal systolic wall thickening and contraction of segments. Resting study shows no significant change in perfusion pattern compared to stress perfusion study. Gating at rest reveals normal systolic wall motion with ejection fraction at 71%. The findings are consistent with no clear reversible defect suggestive of ischemia. Normal myocardial perfusion. NM/NM cardiolite stress test Impression: 1. Myocardial perfusion imaging study shows normal myocardial perfusion 2. Gated LVEF is 65% 3. Transient ischemic dilatation not present EKG is nondiagnostic for ischemia
--- NOTE | 2022-04-23 08:19 | CA_ITS ---
Acquisition Time: 2022-04-23 08:09:44 Total Exercise Time: 00:02:00 Test Indications: Dyspnea Medications: ELIQUIS OMEPRAZOLE DULOXETINE EZITIMIBE Protocol: LEXISCAN Max HR: 105 BPM 73% of Pred: 143 BPM Max BP: 106/044 mmHG Max Work Load: 1.6 METS Pharmacological stress test with Lexiscan injection, while walking slowly on treadmill, without anginal symptoms, with one PVC, with normotensive response to injection, with nondiagnostic EKG for ischemia. In recovery she reported lightheadedness and headache that was treated with Aminophylline 75mg IVP to reverse Lexiscan with gradual improvement in symptom. Nuclear images pending. Test reviewed with Dr Tsang Referred By: Francisco Lujan Overread By: MERLE DE LA CRUZ
== END ==
LOC: HO.CARD 07:50
PROVIDERS: Visit Provider Internal Medicine Cardiovascular Disease
DX: I95.1 Orthostatic hypotension (principal); R06.00 Dyspnea, unspecified; I26.99 Other pulmonary embolism without acute cor pulmonale
CPT/HCPCS: 78452; 93017; A9500; J0280; J2785

== ENCOUNTER → 2022-04-24 11:43 | Outpatient (REF) | payer MEDICARE, OTHER, SELFPAY ==
--- NOTE | 2022-04-24 11:33 | CA_ITS ---
Transthoracic Echocardiogram Patient (Last, First, Middle): Daxa Tobias, Gender: Female Date of : 1945 Age: 76 Procedure Date: 04/24/2022 Procedure Type: Transthoracic Echocardiogram Location: OP Height: 165.1 cm Weight: 63.5 kg BSA: 1.70 m2 Heart Rate: bpm BP: 110 / 50 mmHg Spinning Bath Person: CHELSY Keen MD: Francisco Lujan MD Symptoms: R06.00 - Dyspnea, unspecified Study Quality: Good Conclusions: - Contrast study for right to left shunting is moderately positive with Valsalva maneuver. Patent foramen ovale detected using by contrast. Findings Left Ventricle Normal left ventricular size and systolic function. Right Ventricle Normal right ventricular cavity size and systolic function. Atria Contrast study for right to left shunting is moderately positive with Valsalva maneuver. Patent foramen ovale detected using by contrast. Updated in Other Vendor System with Status of Final Deon Tsang MD electronically signed on 04/25/2022 11:50:42 PM with status of Final
== END ==
LOC: HO.CARD 11:43
PROVIDERS: Visit Provider Internal Medicine Cardiovascular Disease
DX: R06.00 Dyspnea, unspecified (principal)
CPT/HCPCS: 93308

== ENCOUNTER 2022-05-07 09:25 | Outpatient (REF) | payer MEDICARE, OTHER, SELFPAY ==
--- NOTE | ~2022-05-07 | CT_ITS ---
EXAMINATION: CT ANGIOGRAM OF THE CHEST WITH AND WITHOUT CONTRAST (CT PULMONARY ANGIOGRAM FOR PE) CLINICAL INFORMATION: Reason for Exam RECURRENT CHEST PAIN left side. COMPARISON: CTA chest 04/05/2022 TECHNIQUE: Prior to contrast administration, noncontrast localization images were obtained. Subsequently, multidetector volumetric imaging was performed from the thoracic inlet to below the diaphragms following the administration of 80 mL Omnipaque 350 intravenous contrast. No contrast reaction reported Sagittal, coronal, and MIP oblique sagittal reformatted images were obtained on the CT workstation, uploaded to PACS, and reviewed. This CT examination was performed using dose optimization techniques as appropriate, variously including the following: *Automated exposure control *Adjustment of mA and/or kV according to patient size (this includes techniques or standardized protocols for targeted exams where dose is matched to indication/reason for exam; i.e. extremities or head) *Use of iterative reconstruction technique Total exam dose-length product 101 mGy-cm FINDINGS: QUALITY OF STUDY/CONTRAST BOLUS: Satisfactory. PULMONARY ARTERIES: There is no intraluminal filling defect in the main, right or left ovary arteries. Especially there is no filling defect in the left lower lobe or left upper lobe pulmonary artery branches. Previously seen right lower lobe pulmonary artery emboli has resolved. The pulmonary artery size is normal. THORACIC AORTA: No aneurysm or dissection. LUNG: The lungs are well-expanded and clear acute pneumonic process. Minimal dependent bibasilar compressive atelectasis is again visualized and stable. There are no pulmonary nodule, mass or groundglass attenuation. PLEURA: No pleural effusion or pneumothorax. MEDIASTINUM: Normal heart size. No pericardial effusion. No hilar or mediastinal lymphadenopathy. No evidence of septal bowing or right heart strain. CHEST WALL/AXILLA: No axillary or internal mammary lymphadenopathy. OSSEOUS STRUCTURES: No aggressive lytic or sclerotic process seen. UPPER ABDOMEN: Visualized liver, spleen, pancreas and bilateral adrenal glands unremarkable. No reflux of contrast into the hepatic veins to suggest elevated right heart pressures. CT/CT angio chest PE protocol IMPRESSION: No evidence of PE. Previously seen pulmonary emboli in the right lower lobe pulmonary artery branch has resolved. No evidence of aortic dissection or aneurysm. There is dependent compressive bibasilar atelectasis. Results were immediately conveyed to Dr. Barrett in ICU immediately after the exam on 05/07/2022 at 2:30 PM VTE: negative
--- NOTE | 2022-05-07 10:59 | PFT_ITS ---
Forced vital capacity 93%. FEV1 99%. FEV1/FVC ratio is 79. [id number] 121% and MVV is 108%. Post bronchodilator therapy, there is a slight improvement in [id number]. Total lung capacity 89%. Residual volume 89%. Diffusion capacity is 49% and DL/VA 56% CONCLUSION: There is no evidence of obstructive or restrictive pulmonary disorder. Markedly decreased diffusion capacity, may be secondary to pulmonary vascular disease. Clinical correlation recommended. Karon Camacho MD MSB/MODL / [id number]
[2022-05-07] MEDS: iohexoL 350 MG/ML 100 ML INFUS..BTL IV (14:25)
--- NOTE | 2022-05-09 07:00 | PM.CCPN ---
Subjective Subjective Date of Service: 05/09/22 Interval History: 76-year-old female with background history of inflammatory arthritis and no other specific definition who was treated with leflunomide and methotrexate and was given a 3rd monthly infusion of Orencia and 3 days subsequent to this infusion bed developed shortness of breath which was difficult to qualify at 1st the seemingly symptoms more prominent in the upright position never seeming to bother her 1 supine and there was a questionable component but there was no associated wheezing no use of accessory muscles but clearly a hyper ventilatory pattern and then there was a co associated right chest discomfort with a somewhat pleuritic nature but there was also a positional component to that as well and several ambulance calls and then a trip to [facility] resulted in several consecutive troponins which were negative with BNP ease that were consecutively negative and this is in the face of symptom and repeated EKGs that were all negative with no ischemic changes and even the D-dimers were negative at least on 2 occasions and then finally within the week coming into the hospital and despite negative results we did a CT angiogram for pulmonary embolism protocol and this was on the heels of a dry CT scan which was essentially negative normal-looking parenchyma so no evidence of acute or chronic lung disease no evidence of interstitial disease or alveolitis which we were concerned about in relation to either her underlying arthritic issue or even the medications used to treat namely leflunomide and methotrexate and Orencia 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 which she was having her discomfort and felt this was the source all of these and feet infusions were stopped and where it at this point as of today which is 05/09/2022 we been off for at least 3-4 weeks but still was having persistent shortness of breath issues again manifested by this hyperventilation and we even did echocardiogram showing globally normal systolic wall motion no segmental wall motion abnormality during symptoms and also at rest no primary valve or pericardial disease ultimately we did a bubble study documenting on with Valsalva only that there was a modest patent foramen ovale but there was no evidence of Ortho D Oxy a no 6 minute walking hypoxia either always consistently 95-98% on oxygen saturations and then ultimately because of persistent symptoms and atypical chest pain cardiac catheterization was done both right and left demonstrating no significant coronary disease left ventricular filling pressures are all well within normal limits pulmonary artery pressures all within normal limits not even a demonstration of diastolic dysfunction and then we had a pulmonary consult with pulmonary function testing showing moderate reduction of diffusion capacity as the only abnormality feeling that that might be consistent with interstitial disease and her again raising the question is it part and parcel of the underlying inflammatory arthritis or was it medication induced so again all medications have been stopped no improvement a month later with symptoms so 8 a slow tapering course of steroids with prednisone 40 mg and then every 3 days dropping by 5 mg until completely tapered off to see this makes a difference hopefully with an inflammatory component to this presumed interstitial disease So she will be on a tapering dose of prednisone and at least for 6 months she will remain on Eliquis at 5 mg b.i.d. and the workup for hypercoagulability found nothing so there is nothing here to dictate a need for life time anticoagulation and again a this potentially could have been due to the prolonged travel from [place] up to [place] or not impossible that the [facility] contributed to this because there are case descriptions of hypercoagulability following that infusion Critical Care Time (minutes): 15 Quality Stroke Does the patient have a stroke diagnosis?: No VTE Prior VTE?: No VTE Risk Level:: Medical - low VTE Device Contraindication: N/A - Device Ordered VTE Drug Contraindication: N/A - Med Ordered
== END 2022-05-07 09:26 | disposition home or self-care (01) ==
LOC: HO.RESP 09:25
PROVIDERS: Absent Provider Family Medicine; PCP Internal Medicine Cardiovascular Disease; Visit Provider Internal Medicine Pulmonary Disease
DX: R07.9 Chest pain, unspecified (principal); R06.00 Dyspnea, unspecified; R94.2 Abnormal results of pulmonary function studies
CPT/HCPCS: 71275; 94060; 94618; 94727; 94729; 99202; Q9967